=== PATIENT | female | born 1955 | race Caucasian/White ===

== ENCOUNTER 2019-01-19 20:18 | Observation (INO) ==
[2019-01-19] MEDS ORDERED: ASPIRIN 325 MG TABLET PO STA (20:37)
[2019-01-19 20:48] LABS: Basophils # 0.1 10*3/uL (0.0-0.2); Basophils % 0.6 % (0.0-0.8); Eosinophils # 0.1 10*3/uL (0.0-0.87); Eosinophils % 1.1 % (0.00-10.9); Hematocrit 41.6 VOL% (35.7-47.0); Hemoglobin 13.4 GM/DL (12.0-16.0); Immature Granulocytes % 0.4 %; Immature Granulocytes Absolute 0.04 #; Lymphocytes # 3.7 10*3/uL (1.4-4.0); Mean Corpuscular HGB Conc 32.2 GM/DL (32-36); Mean Corpuscular Volume 94.5 FL (87-102); Monocytes % 11.3 % (1.7-12.7); Neutrophils % 49.6 % (38.7-73.9); Platelet Count 383 T/CUMM (130-400); Red Cell Distribution Width 14.5 % (9.3-17.3); White Blood Count 10.1 T/CUMM (4-12)
[2019-01-19 21:11] LABS: Lymphocytes 37 % (20-55); Segmented Neutrophils 50 % (50-85); Total Cells Counted 100
[2019-01-19 21:12] LABS: Alanine Aminotransferase 25 U/L (13-56); Albumin 3.8 G/DL (3.4-5.0); Alkaline Phosphatase 116 U/L (45-117); Aspartate Amino Transferase 23 U/L (0-37); Bilirubin,Total < 0.39 MG/DL (0.2-1.0); Blood Urea Nitrogen 9 MG/DL (7-18); Glucose 98 MG/DL (74-106); Osmolality,Calculated 277.4 MOS/KG (273-304); Platelet Estimate Adequate; Total Protein 8.1 G/DL (6.4-8.3)
[2019-01-20] MEDS: ENOXAPARIN 40 MG/0.4 ML SYRINGE SUBCUT SCH ×2 (00:33→09:41)
[2019-01-20] MEDS ORDERED: ASPIRIN EC 325 MG TABLET PO SCH (09:00)
[2019-01-20] MEDS ORDERED: ISOSORBIDE MONONITRATE 60 MG TABLET PO SCH (11:30)
[2019-01-20] MEDS ORDERED: CARVEDILOL 3.125 MG TABLET PO SCH (12:00)
[2019-01-20 12:17] VITALS: BP 145/74
[2019-01-20] MEDS ORDERED: DILTIAZEM CD 120 MG CAPSULE PO SCH (21:00)
== END 2019-01-20 14:17 | disposition home or self-care (01) ==
LOC: N.TELES 20:18 → N.ED 20:18 → N.TELES 23:33
PROVIDERS: ADMIT Emergency Medicine; ATTEND Emergency Medicine

== ENCOUNTER 2019-02-10 05:30 | Inpatient (IN) ==
[2019-02-09 12:02] LABS: Basophils # 0.1 10*3/uL (0.0-0.2); Basophils % 0.6 % (0.0-0.8); Eosinophils # 0.4 10*3/uL (0.0-0.87); Eosinophils % 5.3 % (0.00-10.9); Hematocrit 35.9 VOL% (35.7-47.0); Hemoglobin 11.4 GM/DL (12.0-16.0); Immature Granulocytes % 0.4 %; Immature Granulocytes Absolute 0.03 #; Lymphocytes # 1.9 10*3/uL (1.4-4.0); Mean Corpuscular HGB Conc 31.8 GM/DL (32-36); Mean Corpuscular Volume 96.2 FL (87-102); Mean Platelet Volume 9.1 FL (9.6-12.0); Monocytes % 13.6 % (1.7-12.7); Neutrophils % 57.1 % (38.7-73.9); Platelet Count 338 T/CUMM (130-400); Red Blood Count 3.73 MC/CUMM (3.8-5.5); Red Cell Distribution Width 14.1 % (9.3-17.3); White Blood Count 8.2 T/CUMM (4-12)
[2019-02-09 12:15] LABS: Calcium 9.2 MG/DL (8.5-10.1); Osmolality,Calculated 281.1 MOS/KG (273-304)
[2019-02-09 12:17] LABS: INR 0.8; PT Patient Result 9.2 SECS
[2019-02-09 13:17] LABS: Apearance,Urine CLEAR (Clear); Bilirubin,Urine Negative (Negative); Blood, Urine Negative (Negative); Glucose,Urine (UA) Negative (Negative); Ketones,Urine Negative (Negative); Nitrite,Urine Negative (Negative); Protein,Urine Negative; RBC,Urine <1 /HPF (0-4); Squamous Epithelial Cell,Urine Occasional /HPF (0-10); Urine Color Straw (Yellow); Urine Specific Gravity 1.003 (1.001-1.035); Urine Urobilinogen < 2.0 EU/DL (0.2-1.0); WBC,Urine <1 /HPF (0-6)
[~2019-02-10 05:30] MED LIST: ALBUTEROL/IPRATROPIUM 3 ML NEB RESP TX ONE; CEFUROXIME INJ 1,500 MG in SYRINGE 1 EACH IV ONE; DIAZEPAM 5 MG TABLET PO ONE; PAPAVERINE 60 MG/2 ML VIAL ONE; SODIUM CHLORIDE 0.9% 1,000 ML IV PRN; TISSUE ADHESIVE 1 EACH APPLICATOR TOP ONE; VANCOMYCIN 1,000 MG VIAL ONE
[2019-02-10] MEDS ORDERED: CEFUROXIME 1,500 MG VIAL ONE (06:05)
[2019-02-10] MEDS ORDERED: DIAZEPAM 5 MG TABLET ONE (06:06)
[2019-02-10] MEDS ORDERED: MIDAZOLAM 10 MG/2 ML VIAL ONE ×2 (06:20)
[2019-02-10] MEDS ORDERED: SUFentanil 250 MCG/5 ML AMP ONE (06:20)
[2019-02-10] MEDS ORDERED: LACTATED RINGERS 1,000 ML IV SCH (06:30)
[2019-02-10] MEDS ORDERED: NITROPRUSSIDE 50 MG/2 ML VIAL ONE (07:31)
[2019-02-10] MEDS ORDERED: SODIUM BICARBONATE 50 MEQ/50 ML VIAL IV ONE ×2 (07:32→10:19)
[2019-02-10] MEDS ORDERED: POTASSIUM CHLORIDE RIDER 100 ML IV ONE (07:32)
[2019-02-10] MEDS ORDERED: EPINEPHrine 1 MG/10 ML SYRINGE ONE (07:32)
[2019-02-10] MEDS ORDERED: CALCIUM CHLORIDE 1,000 MG/10 ML SYRINGE IV ONE (07:32)
[2019-02-10] MEDS ORDERED: PHENYLEPHRINE DRIP 40 MG/250 ML PREMIX IV ONE (07:32)
[2019-02-10] MEDS ORDERED: ALBUMIN 5% 12.5 GM/250 ML VIAL IV ONE ×2 (07:33)
[2019-02-10 07:43] LABS: ABG HCO3 22.7 MMOL/L (20-26); ABG PCO2 43.3 MM HG (35-48); ABG PH 7.337 (7.35-7.45); ABG PO2 359.8 MM HG (80-95); Glucose Heart Surgery 80 MG/DL (74-106); Hemoglobin Heart Surgery 10.5 G/DL (12.0-16.0); Ionized Calcium Arterial 1.15 MMOL/L (1.21-1.46); PCO2 Patient Temp Arterial 43.3 MMHG; PH Patient Temp Arterial 7.337; PO2 Patient Temp Arterial 359.8 MM HG; Patient Temperature 37 CELCIUS; Potassium Heart/CVR 3.1 MMOL/L (3.5-5.1); Sodium Heart/CVR 141 MMOL/L (135-145)
[2019-02-10 08:18] LABS: Amorphous Crystals,Urine Moderate /HPF (Few); Apearance,Urine Slightly Hazy (Clear); Bilirubin,Urine Negative (Negative); Blood, Urine Negative (Negative); Glucose,Urine (UA) Negative (Negative); Ketones,Urine Negative (Negative); Nitrite,Urine Negative (Negative); Protein,Urine Negative; RBC,Urine <1 /HPF (0-4); Urine Color Yellow (Yellow); Urine Specific Gravity 1.012 (1.001-1.035); Urine Urobilinogen < 2.0 EU/DL (0.2-1.0)
[2019-02-10 08:59] LABS: Hematocrit Heart Surgery 20.4 PERCENT (37-47); Hemoglobin Heart Surgery 6.5 G/DL (12.0-16.0); PCO2 Patient Temp Venous 37.1 MM HG; PH Patient Temp Venous 7.417; Potassium Heart/CVR 3.6 MMOL/L (3.5-5.1); VBG Base Excess -0.1 MEQ/L (0-4); VBG HCO3 24.1 MEQ/L (24-28); VBG PCO2 42.9 MMHG (41-51); VBG PH 7.374; VBG PO2 41.8 MMHG (17-40)
[2019-02-10 09:29] LABS: Hematocrit Heart Surgery 20.8 PERCENT (37-47); Hemoglobin Heart Surgery 6.6 G/DL (12.0-16.0); PCO2 Patient Temp Venous 34.8 MM HG; PH Patient Temp Venous 7.444; PO2 Patient Temp Venous 35.5 MM HG; Potassium Heart/CVR 3.6 MMOL/L (3.5-5.1); VBG Base Excess 0.2 MEQ/L (0-4); VBG HCO3 24.4 MEQ/L (24-28); VBG Oxygen Saturation 80.8 %; VBG PCO2 40.2 MMHG (41-51); VBG PH 7.401; VBG PO2 43.7 MMHG (17-40)
[2019-02-10] MEDS ORDERED: MANNITOL 100 GM/500 ML BAG IV ONE (10:18)
[2019-02-10] MEDS ORDERED: DEXTROSE 5% KCL 20 MEQ 20 MEQ/1,000 ML BAG IV ONE (10:19)
[2019-02-10] MEDS ORDERED: MAGNESIUM SULFATE 5 GM/10 ML VIAL IV ONE (10:19)
[2019-02-10] MEDS ORDERED: HEPARIN 10,000 UNIT/10 ML VIAL ONE (10:19)
[2019-02-10] MEDS ORDERED: ALBUMIN 25% 25 GM/100 ML VIAL IV ONE (10:19)
[2019-02-10] MEDS ORDERED: PROTAMINE SULFATE 250 MG/25 ML VIAL IV ONE (10:19)
[2019-02-10] MEDS ORDERED: methylPREDNISolone SOD SUC 1,000 MG/8 ML VIAL ONE (10:19)
[2019-02-10] MEDS ORDERED: FUROSEMIDE 20 MG/2 ML VIAL ONE (10:19)
[2019-02-10] MEDS ORDERED: PROTAMINE SULFATE 50 MG/5 ML VIAL IV ONE (10:20)
[2019-02-10 10:28] LABS: ABG Base Excess -4.4 MMOL/L (-2.5-2.5); ABG HCO3 20.8 MMOL/L (20-26); ABG Oxygen Saturation 99.8 % (95-100); ABG PCO2 41.6 MM HG (35-48); ABG TCO2 19.8 MMOL/L (23-27); Glucose Heart Surgery 222 MG/DL (74-106); Hematocrit Heart Surgery 29.1 PERCENT (37-47); Hemoglobin Heart Surgery 9.4 G/DL (12.0-16.0); Ionized Calcium Arterial 1.31 MMOL/L (1.21-1.46); PCO2 Patient Temp Arterial 41.6 MMHG; Patient Temperature 37 CELCIUS; Potassium Heart/CVR 3.3 MMOL/L (3.5-5.1); Sodium Heart/CVR 137 MMOL/L (135-145)
[2019-02-10] MEDS ORDERED: AMIODARONE 450 MG/9 ML VIAL IV ONE (10:45)
[2019-02-10] MEDS ORDERED: AMIODARONE INJ 450 MG in DEXTROSE 5% 241 ML IV SCH (11:00)
[2019-02-10] MEDS ORDERED: MAGNESIUM SULF RIDER 4 GM in PREMIX 1 EACH IV PRN (11:01)
[2019-02-10] MEDS ORDERED: DEXTROSE 50% 25 GM/50 ML VIAL IV PRN ×2 (11:01)
[2019-02-10] MEDS ORDERED: ACETAMINOPHEN 650 MG SUPP RECTAL PRN (11:01)
[2019-02-10] MEDS ORDERED: ONDANSETRON 4 MG/2 ML VIAL IV PRN (11:01)
[2019-02-10] MEDS ORDERED: CALCIUM CHLORIDE 1,000 MG/10 ML SYRINGE IV PRN (11:01)
[2019-02-10] MEDS ORDERED: SODIUM CHLORIDE 0.9% 250 ML IV PRN (11:01)
[2019-02-10] MEDS ORDERED: INSULIN REGULAR 100 UNIT/ML IV PRN (11:01)
[2019-02-10] MEDS ORDERED: ALBUMIN 5% 12.5 GM in PREMIX 1 EACH IV PRN (11:01)
[2019-02-10] MEDS ORDERED: CHLORHEXIDINE 4% SOLN 118 ML BOTTLE TOP PRN (11:01)
[2019-02-10] MEDS ORDERED: MIDAZOLAM 2 MG/2 ML VIAL IV PRN (11:01)
[2019-02-10] MEDS ORDERED: INSULIN REGULAR DRIP 100 ML IV SCH (11:30)
[2019-02-10] MEDS: SODIUM CHLORIDE 0.45% 1,000 ML IV SCH ×3 (11:34→22:47)
[2019-02-10 11:35] LABS: ABG Base Excess -3.9 MMOL/L (-2.5-2.5); ABG HCO3 21.2 MMOL/L (20-26); ABG Oxygen Saturation 97.9 % (95-100); ABG PCO2 44.2 MM HG (35-48); ABG PH 7.311 (7.35-7.45); ABG TCO2 20.4 MMOL/L (23-27); Glucose Heart Surgery 148 MG/DL (74-106); Hematocrit Heart Surgery 32.1 PERCENT (37-47); Hemoglobin Heart Surgery 10.4 G/DL (12.0-16.0); Potassium Heart/CVR 2.8 MMOL/L (3.5-5.1)
[2019-02-10 11:37] LABS: Basophils % 0.3 % (0.0-0.8); Eosinophils # 0.3 10*3/uL (0.0-0.87); Eosinophils % 2.9 % (0.00-10.9); Hematocrit 31.4 VOL% (35.7-47.0); Hemoglobin 10.1 GM/DL (12.0-16.0); Immature Granulocytes % 0.8 %; Immature Granulocytes Absolute 0.08 #; Lymphocytes # 1.9 10*3/uL (1.4-4.0); Lymphocytes % 17.8 % (21.3-54.2); Mean Corpuscular HGB Conc 32.2 GM/DL (32-36); Mean Platelet Volume 9.4 FL (9.6-12.0); Neutrophils % 71.2 % (38.7-73.9); Platelet Count 189 T/CUMM (130-400); Red Blood Count 3.27 MC/CUMM (3.8-5.5); Red Cell Distribution Width 13.6 % (9.3-17.3); White Blood Count 10.7 T/CUMM (4-12)
[2019-02-10] MEDS: POTASSIUM CHLORIDE RIDER 20 MEQ in PREMIX 1 EACH IV PRN ×3 (11:48→17:51)
[2019-02-10 11:55] LABS: INR 0.9; PT Patient Result 10.3 SECS; Partial Thromboplastin Time 25.1 SECS (0-40)
[2019-02-10] MEDS: SODIUM CHLORIDE 0.9% 1,000 ML IV PRN ×2 (12:00→20:46)
[2019-02-10] MEDS: MAGNESIUM SULF RIDER 2 GM in PREMIX 1 EACH IV PRN (12:00)
[2019-02-10] MEDS ORDERED: MINERAL OIL/PETROLATUM OPH OINT 3.5 GM TUBE ONE (12:04)
[2019-02-10] MEDS ORDERED: HEPARIN/NACL 0.9% 2 UNITS/ML 500 ML IV ONE (12:04)
[2019-02-10] MEDS ORDERED: CALCIUM CHLORIDE 1,000 MG/10 ML VIAL IV ONE (12:04)
[2019-02-10] MEDS ORDERED: SODIUM CHLORIDE 0.9% 250 ML IV ONE (12:04)
[2019-02-10] MEDS ORDERED: SEVOFLURANE 1 UNIT/15 MINUTE INH ONE (12:04)
[2019-02-10] MEDS ORDERED: ETOMIDATE 40 MG/20 ML VIAL IV ONE (12:04)
[2019-02-10] MEDS ORDERED: LACTATED RINGERS 1,000 ML IV ONE (12:04)
[2019-02-10] MEDS ORDERED: AMIODARONE 150 MG/3 ML VIAL ONE (12:04)
[2019-02-10] MEDS ORDERED: SODIUM CHLORIDE 0.9% 1,000 ML IV ONE (12:04)
[2019-02-10] MEDS ORDERED: VECURONIUM 10 MG VIAL IV ONE (12:04)
[2019-02-10] MEDS ORDERED: AMINOCAPROIC ACID 5,000 MG/20 ML VIAL ONE (12:04)
[2019-02-10] MEDS ORDERED: SODIUM CHLORIDE 0.9% 100 ML IV ONE (12:04)
[2019-02-10 12:08] LABS: Calcium 8.6 MG/DL (8.5-10.1); Osmolality,Calculated 285.8 MOS/KG (273-304)
[2019-02-10] MEDS ORDERED: ASPIRIN 325 MG TABLET PO ONE (12:33)
[2019-02-10] MEDS ORDERED: INSULIN REGULAR DRIP 100 ML IV PRN (13:46)
[2019-02-10] MEDS ORDERED: INSULIN REGULAR 100 UNIT/ML SUBCUT SCH (16:00)
[2019-02-10] MEDS: AMIODARONE INJ 450 MG in DEXTROSE 5% 241 ML IV SCH ×2 (16:00→21:03)
[2019-02-10] MEDS: INSULIN REGULAR 100 UNIT/ML SUBCUT SCH ×2 (16:11→20:15)
[2019-02-10 16:48] LABS: ABG Base Excess -5.2 MMOL/L (-2.5-2.5); ABG HCO3 20.1 MMOL/L (20-26); ABG Oxygen Saturation 97.1 % (95-100); ABG PCO2 41.4 MM HG (35-48); ABG PH 7.309 (7.35-7.45); ABG PO2 98.4 MM HG (80-95); ABG TCO2 19.2 MMOL/L (23-27); Glucose Heart Surgery 171 MG/DL (74-106); Hematocrit Heart Surgery 30.5 PERCENT (37-47); Hemoglobin Heart Surgery 9.8 G/DL (12.0-16.0); Potassium Heart/CVR 3.6 MMOL/L (3.5-5.1)
[2019-02-10] MEDS: MORPHINE 4 MG/1 ML VIAL IV PRN ×2 (17:10→18:23)
[2019-02-10] MEDS: CEFUROXIME INJ 1,500 MG in SYRINGE 1 EACH IV SCH (18:01)
[2019-02-10] MEDS: POTASSIUM CHLORIDE RIDER 10 MEQ in PREMIX 1 EACH IV PRN (18:22)
[2019-02-10] MEDS ORDERED: METOPROLOL TARTRATE 5 MG/5 ML VIAL IV ONE (19:43)
[2019-02-10] MEDS: MORPHINE 10 MG/1 ML VIAL IV PRN (20:12)
[2019-02-10] MEDS: CHLORHEXIDINE 0.12% ORAL RINSE 60 ML BOTTLE SWISH/SPIT SCH (20:44)
[2019-02-11] MEDS: INSULIN REGULAR 100 UNIT/ML SUBCUT SCH ×7 (00:42→23:09)
[2019-02-11] MEDS: MORPHINE 10 MG/1 ML VIAL IV PRN ×5 (00:43→20:36)
[2019-02-11] MEDS: SODIUM CHLORIDE 0.45% 1,000 ML IV SCH ×2 (00:49→07:30)
[2019-02-11 04:29] LABS: Basophils % 0.3 % (0.0-0.8); Eosinophils # 0.1 10*3/uL (0.0-0.87); Eosinophils % 0.4 % (0.00-10.9); Hematocrit 30.9 VOL% (35.7-47.0); Hemoglobin 9.7 GM/DL (12.0-16.0); Immature Granulocytes % 0.7 %; Lymphocytes # 1.6 10*3/uL (1.4-4.0); Lymphocytes % 10.5 % (21.3-54.2); Mean Corpuscular HGB Conc 31.4 GM/DL (32-36); Mean Corpuscular Volume 97.5 FL (87-102); Mean Platelet Volume 9.7 FL (9.6-12.0); Monocytes % 12.4 % (1.7-12.7); Neutrophils % 75.7 % (38.7-73.9); Platelet Count 214 T/CUMM (130-400); Red Blood Count 3.17 MC/CUMM (3.8-5.5); Red Cell Distribution Width 13.7 % (9.3-17.3); White Blood Count 15.3 T/CUMM (4-12)
[2019-02-11 04:31] LABS: ABG Base Excess -5.2 MMOL/L (-2.5-2.5); ABG HCO3 20.1 MMOL/L (20-26); ABG Oxygen Saturation 92.1 % (95-100); ABG PCO2 36.7 MM HG (35-48); ABG PH 7.344 (7.35-7.45); ABG PO2 64.4 MM HG (80-95); ABG TCO2 18.3 MMOL/L (23-27); Glucose Heart Surgery 151 MG/DL (74-106); Hematocrit Heart Surgery 31.7 PERCENT (37-47); Hemoglobin Heart Surgery 10.2 G/DL (12.0-16.0); Potassium Heart/CVR 3.7 MMOL/L (3.5-5.1)
[2019-02-11] MEDS: POTASSIUM CHLORIDE RIDER 20 MEQ in PREMIX 1 EACH IV PRN ×2 (04:37→05:11)
[2019-02-11 04:44] LABS: Calcium 7.4 MG/DL (8.5-10.1); Osmolality,Calculated 280.3 MOS/KG (273-304)
[2019-02-11 05:05] LABS: Hypochromasia Slight; Ovalocytes Slight; Platelet Estimate Adequate
[2019-02-11] MEDS: METOPROLOL TARTRATE 25 MG TABLET PO SCH ×3 (05:52→20:35)
[2019-02-11] MEDS: MAGNESIUM SULF RIDER 2 GM in PREMIX 1 EACH IV PRN ×2 (05:56→07:55)
[2019-02-11] MEDS: CEFUROXIME INJ 1,500 MG in SYRINGE 1 EACH IV SCH ×2 (06:14→18:34)
[2019-02-11] MEDS: AMIODARONE INJ 450 MG in DEXTROSE 5% 241 ML IV SCH (06:27)
[2019-02-11] MEDS: MORPHINE 4 MG/1 ML VIAL IV PRN ×2 (08:25→14:19)
[2019-02-11] MEDS: ASPIRIN EC 325 MG TABLET PO SCH (08:25)
[2019-02-11] MEDS: FUROSEMIDE 40 MG TABLET PO SCH (08:25)
[2019-02-11] MEDS ORDERED: FUROSEMIDE 40 MG/4 ML VIAL IV ONE (08:48)
[2019-02-11] MEDS ORDERED: KETOROLAC 30 MG/1 ML VIAL IV ONE (08:48)
[2019-02-11] MEDS ORDERED: PANTOPRAZOLE 40 MG VIAL IV SCH (09:00)
[2019-02-11] MEDS: CHLORHEXIDINE 0.12% ORAL RINSE 60 ML BOTTLE SWISH/SPIT SCH ×2 (09:00→20:42)
[2019-02-11] MEDS: CLOPIDOGREL 75 MG TABLET PO SCH (09:00)
[2019-02-11] MEDS: AMIODARONE 200 MG TABLET PO SCH (09:00)
[2019-02-11] MEDS ORDERED: BUTALBITAL ACETAMINOPHEN PO PRN (09:34)
[2019-02-11] MEDS ORDERED: PROMETHAZINE 25 MG TABLET PO PRN (09:34)
[2019-02-11] MEDS: ISOSORBIDE MONONITRATE 30 MG TABLET PO SCH (14:22)
[2019-02-11] MEDS: BISMUTH SUBSALICYLATE 30 ML/524 MG 240 ML/BOTTLE PO SCH ×3 (14:52→20:43)
[2019-02-11] MEDS: ZALEPLON 5 MG CAPSULE PO SCH (20:34)
[2019-02-11] MEDS: DILTIAZEM CD 120 MG CAPSULE PO SCH (20:35)
[2019-02-11] MEDS: FAMOTIDINE 20 MG TABLET PO SCH (20:35)
[2019-02-11] MEDS: GABAPENTIN 300 MG CAPSULE PO SCH (20:35)
[2019-02-11] MEDS: ATORVASTATIN 40 MG TABLET PO SCH (20:36)
[2019-02-12] MEDS: INSULIN REGULAR 100 UNIT/ML SUBCUT SCH ×6 (03:44→23:11)
[2019-02-12 05:09] LABS: Basophils % 0.2 % (0.0-0.8); Eosinophils # 0.2 10*3/uL (0.0-0.87); Eosinophils % 1.3 % (0.00-10.9); Hematocrit 27.6 VOL% (35.7-47.0); Immature Granulocytes % 0.5 %; Immature Granulocytes Absolute 0.07 #; Lymphocytes % 13.8 % (21.3-54.2); Mean Corpuscular HGB Conc 32.6 GM/DL (32-36); Mean Corpuscular Volume 95.2 FL (87-102); Mean Platelet Volume 10.4 FL (9.6-12.0); Neutrophils % 68.2 % (38.7-73.9); Platelet Count 208 T/CUMM (130-400); Red Cell Distribution Width 13.4 % (9.3-17.3); White Blood Count 14.5 T/CUMM (4-12)
[2019-02-12 05:36] LABS: Calcium 7.6 MG/DL (8.5-10.1); Osmolality,Calculated 272.7 MOS/KG (273-304)
[2019-02-12 06:00] LABS: Atypical Lymphocytes Few; Band Neutrophils 1 % (0-10); Eosinophils 1 % (0-10); Hypochromasia Slight; Lymphocytes 12 % (20-55); Microcytosis Slight; Segmented Neutrophils 73 % (50-85); Total Cells Counted 100
[2019-02-12 06:01] LABS: Platelet Estimate Normal
[2019-02-12] MEDS ORDERED: AMITRIPTYLINE 100 MG TABLET PO SCH (09:00)
[2019-02-12] MEDS ORDERED: PROMETHAZINE 25 MG TABLET PO PRN (09:40)
[2019-02-12] MEDS: CLOPIDOGREL 75 MG TABLET PO SCH (10:16)
[2019-02-12] MEDS: MULTIVITAMIN (CENTRUM) TABLET PO SCH (10:16)
[2019-02-12] MEDS: FAMOTIDINE 20 MG TABLET PO SCH ×2 (10:16→20:58)
[2019-02-12] MEDS: DULoxetine 30 MG CAPSULE PO SCH (10:16)
[2019-02-12] MEDS: GABAPENTIN 300 MG CAPSULE PO SCH ×2 (10:16→20:58)
[2019-02-12] MEDS: ASPIRIN EC 325 MG TABLET PO SCH (10:17)
[2019-02-12] MEDS: METOPROLOL TARTRATE 25 MG TABLET PO SCH ×2 (10:17→20:58)
[2019-02-12] MEDS: AMIODARONE 200 MG TABLET PO SCH (10:17)
[2019-02-12] MEDS: FUROSEMIDE 40 MG TABLET PO SCH (10:17)
[2019-02-12] MEDS: CALCIUM (CARBONATE)/VITAMIN D 600 MG-400 UNIT TABLET PO SCH (10:17)
[2019-02-12] MEDS: PANTOPRAZOLE 20 MG TABLET PO SCH (10:18)
[2019-02-12] MEDS: PARoxetine 20 MG TABLET PO SCH (10:18)
[2019-02-12] MEDS: ISOSORBIDE MONONITRATE 30 MG TABLET PO SCH (10:18)
[2019-02-12] MEDS: FUROSEMIDE 20 MG TABLET PO SCH (10:18)
[2019-02-12] MEDS: CHLORHEXIDINE 0.12% ORAL RINSE 60 ML BOTTLE SWISH/SPIT SCH ×2 (10:19→20:57)
[2019-02-12] MEDS: BISMUTH SUBSALICYLATE 30 ML/524 MG 240 ML/BOTTLE PO SCH ×4 (10:19→20:57)
[2019-02-12] MEDS: POTASSIUM CHLORIDE RIDER 10 MEQ in PREMIX 1 EACH IV PRN ×3 (10:25→13:57)
[2019-02-12] MEDS: DIPHENOXYLATE/ATROPINE 2.5-0.025 MG TABLET PO PRN (17:16)
[2019-02-12] MEDS: DILTIAZEM CD 120 MG CAPSULE PO SCH (20:58)
[2019-02-12] MEDS: ZALEPLON 5 MG CAPSULE PO SCH (20:58)
[2019-02-12] MEDS: ATORVASTATIN 40 MG TABLET PO SCH (20:59)
[2019-02-12] MEDS: AMITRIPTYLINE 100 MG TABLET PO SCH (20:59)
[2019-02-12] MEDS: MORPHINE 10 MG/1 ML VIAL IV PRN (23:11)
[2019-02-13] MEDS: INSULIN REGULAR 100 UNIT/ML SUBCUT SCH ×5 (03:13→20:48)
[2019-02-13 04:40] LABS: Basophils # 0.1 10*3/uL (0.0-0.2); Basophils % 0.5 % (0.0-0.8); Eosinophils # 0.2 10*3/uL (0.0-0.87); Eosinophils % 1.7 % (0.00-10.9); Hemoglobin 9.1 GM/DL (12.0-16.0); Immature Granulocytes % 0.8 %; Immature Granulocytes Absolute 0.11 #; Lymphocytes # 2.7 10*3/uL (1.4-4.0); Lymphocytes % 19.4 % (21.3-54.2); Mean Corpuscular HGB Conc 32.5 GM/DL (32-36); Mean Corpuscular Volume 94.3 FL (87-102); Mean Platelet Volume 10.1 FL (9.6-12.0); Monocytes % 11.1 % (1.7-12.7); Neutrophils % 66.5 % (38.7-73.9); Platelet Count 268 T/CUMM (130-400); Red Blood Count 2.97 MC/CUMM (3.8-5.5); Red Cell Distribution Width 13.2 % (9.3-17.3); White Blood Count 13.9 T/CUMM (4-12)
[2019-02-13 05:02] LABS: Calcium 7.9 MG/DL (8.5-10.1); Osmolality,Calculated 279.3 MOS/KG (273-304)
[2019-02-13] MEDS: MAGNESIUM SULF RIDER 2 GM in PREMIX 1 EACH IV PRN (09:50)
[2019-02-13] MEDS: POTASSIUM CHLORIDE RIDER 10 MEQ in PREMIX 1 EACH IV PRN ×4 (09:52→13:10)
[2019-02-13] MEDS: METOPROLOL TARTRATE 25 MG TABLET PO SCH ×2 (09:53→20:56)
[2019-02-13] MEDS: MULTIVITAMIN (CENTRUM) TABLET PO SCH (09:59)
[2019-02-13] MEDS: DULoxetine 30 MG CAPSULE PO SCH (09:59)
[2019-02-13] MEDS: GABAPENTIN 300 MG CAPSULE PO SCH ×2 (10:00→20:51)
[2019-02-13] MEDS: ASPIRIN EC 325 MG TABLET PO SCH (10:00)
[2019-02-13] MEDS: PARoxetine 20 MG TABLET PO SCH (10:01)
[2019-02-13] MEDS: FUROSEMIDE 40 MG TABLET PO SCH (10:02)
[2019-02-13] MEDS: FAMOTIDINE 20 MG TABLET PO SCH ×2 (10:02→20:51)
[2019-02-13] MEDS: CLOPIDOGREL 75 MG TABLET PO SCH (10:02)
[2019-02-13] MEDS: PANTOPRAZOLE 20 MG TABLET PO SCH (10:02)
[2019-02-13] MEDS: AMIODARONE 200 MG TABLET PO SCH (10:02)
[2019-02-13] MEDS: CALCIUM (CARBONATE)/VITAMIN D 600 MG-400 UNIT TABLET PO SCH (10:04)
[2019-02-13] MEDS: FUROSEMIDE 20 MG TABLET PO SCH (10:07)
[2019-02-13] MEDS: ISOSORBIDE MONONITRATE 30 MG TABLET PO SCH (10:13)
[2019-02-13] MEDS: BISMUTH SUBSALICYLATE 30 ML/524 MG 240 ML/BOTTLE PO SCH ×4 (10:16→20:53)
[2019-02-13] MEDS: CHLORHEXIDINE 0.12% ORAL RINSE 60 ML BOTTLE SWISH/SPIT SCH ×2 (10:17→20:53)
[2019-02-13] MEDS: DIPHENOXYLATE/ATROPINE 2.5-0.025 MG TABLET PO PRN (10:31)
[2019-02-13] MEDS: ATORVASTATIN 40 MG TABLET PO SCH (20:47)
[2019-02-13] MEDS: ZALEPLON 5 MG CAPSULE PO SCH (20:51)
[2019-02-13] MEDS: DIPHENOXYLATE/ATROPINE 2.5-0.025 MG TABLET PO SCH (20:51)
[2019-02-13] MEDS: DILTIAZEM CD 120 MG CAPSULE PO SCH (20:51)
[2019-02-13] MEDS: AMITRIPTYLINE 100 MG TABLET PO SCH (20:51)
[2019-02-13] MEDS: MORPHINE 10 MG/1 ML VIAL IV PRN (23:55)
[2019-02-14] MEDS: MORPHINE 10 MG/1 ML VIAL IV PRN (05:04)
[2019-02-14 05:11] LABS: Basophils # 0.1 10*3/uL (0.0-0.2); Basophils % 0.5 % (0.0-0.8); Eosinophils # 0.5 10*3/uL (0.0-0.87); Eosinophils % 4.8 % (0.00-10.9); Hematocrit 25.5 VOL% (35.7-47.0); Hemoglobin 8.1 GM/DL (12.0-16.0); Immature Granulocytes % 0.7 %; Immature Granulocytes Absolute 0.08 #; Lymphocytes # 2.6 10*3/uL (1.4-4.0); Lymphocytes % 23.4 % (21.3-54.2); Mean Corpuscular HGB Conc 31.8 GM/DL (32-36); Mean Corpuscular Volume 94.4 FL (87-102); Mean Platelet Volume 9.8 FL (9.6-12.0); Monocytes % 13.2 % (1.7-12.7); Neutrophils % 57.4 % (38.7-73.9); Platelet Count 300 T/CUMM (130-400); Red Cell Distribution Width 13.2 % (9.3-17.3); White Blood Count 11.1 T/CUMM (4-12)
[2019-02-14] MEDS: POTASSIUM CHLORIDE RIDER 10 MEQ in PREMIX 1 EACH IV PRN ×6 (06:06→20:13)
[2019-02-14] MEDS: CALCIUM (CARBONATE)/VITAMIN D 600 MG-400 UNIT TABLET PO SCH (08:45)
[2019-02-14] MEDS: FUROSEMIDE 40 MG TABLET PO SCH (08:46)
[2019-02-14] MEDS: ASPIRIN EC 325 MG TABLET PO SCH (08:46)
[2019-02-14] MEDS: PARoxetine 20 MG TABLET PO SCH (08:46)
[2019-02-14] MEDS: DULoxetine 30 MG CAPSULE PO SCH (08:46)
[2019-02-14] MEDS: FAMOTIDINE 20 MG TABLET PO SCH ×2 (08:47→20:14)
[2019-02-14] MEDS: DIPHENOXYLATE/ATROPINE 2.5-0.025 MG TABLET PO SCH ×2 (08:47→20:21)
[2019-02-14] MEDS: AMIODARONE 200 MG TABLET PO SCH (08:47)
[2019-02-14] MEDS: GABAPENTIN 300 MG CAPSULE PO SCH ×2 (08:52→20:13)
[2019-02-14] MEDS: ISOSORBIDE MONONITRATE 30 MG TABLET PO SCH (08:53)
[2019-02-14] MEDS: MULTIVITAMIN (CENTRUM) TABLET PO SCH (08:53)
[2019-02-14] MEDS: CLOPIDOGREL 75 MG TABLET PO SCH (08:53)
[2019-02-14] MEDS: PANTOPRAZOLE 20 MG TABLET PO SCH (08:53)
[2019-02-14] MEDS: INSULIN REGULAR 100 UNIT/ML SUBCUT SCH ×4 (10:37→22:50)
[2019-02-14] MEDS: FUROSEMIDE 20 MG TABLET PO SCH (10:37)
[2019-02-14] MEDS: METOPROLOL TARTRATE 25 MG TABLET PO SCH ×2 (10:38→20:15)
[2019-02-14] MEDS: CHLORHEXIDINE 0.12% ORAL RINSE 60 ML BOTTLE SWISH/SPIT SCH ×2 (10:38→20:30)
[2019-02-14] MEDS: BISMUTH SUBSALICYLATE 30 ML/524 MG 240 ML/BOTTLE PO SCH ×4 (10:38→20:29)
[2019-02-14] MEDS: DILTIAZEM CD 120 MG CAPSULE PO SCH (20:14)
[2019-02-14] MEDS: ZALEPLON 5 MG CAPSULE PO SCH (20:15)
[2019-02-14] MEDS: AMITRIPTYLINE 100 MG TABLET PO SCH (20:21)
[2019-02-14] MEDS: ATORVASTATIN 40 MG TABLET PO SCH (20:22)
[2019-02-15] MEDS: POTASSIUM CHLORIDE RIDER 10 MEQ in PREMIX 1 EACH IV PRN ×5 (04:22→13:35)
[2019-02-15 06:54] LABS: Calcium 8.2 MG/DL (8.5-10.1); Osmolality,Calculated 285.7 MOS/KG (273-304)
[2019-02-15] MEDS: DULoxetine 30 MG CAPSULE PO SCH (08:32)
[2019-02-15] MEDS: PANTOPRAZOLE 20 MG TABLET PO SCH (08:32)
[2019-02-15] MEDS: CALCIUM (CARBONATE)/VITAMIN D 600 MG-400 UNIT TABLET PO SCH (08:32)
[2019-02-15] MEDS: FAMOTIDINE 20 MG TABLET PO SCH (08:33)
[2019-02-15] MEDS: DIPHENOXYLATE/ATROPINE 2.5-0.025 MG TABLET PO SCH (08:33)
[2019-02-15] MEDS: MULTIVITAMIN (CENTRUM) TABLET PO SCH (08:33)
[2019-02-15] MEDS: ISOSORBIDE MONONITRATE 30 MG TABLET PO SCH (08:33)
[2019-02-15] MEDS: ASPIRIN EC 325 MG TABLET PO SCH (08:33)
[2019-02-15] MEDS: FUROSEMIDE 40 MG TABLET PO SCH (08:33)
[2019-02-15] MEDS: PARoxetine 20 MG TABLET PO SCH (08:33)
[2019-02-15] MEDS: GABAPENTIN 300 MG CAPSULE PO SCH (08:33)
[2019-02-15] MEDS: AMIODARONE 200 MG TABLET PO SCH (08:34)
[2019-02-15] MEDS: METOPROLOL TARTRATE 25 MG TABLET PO SCH (08:34)
[2019-02-15] MEDS: CLOPIDOGREL 75 MG TABLET PO SCH (08:34)
[2019-02-15] MEDS: BISMUTH SUBSALICYLATE 30 ML/524 MG 240 ML/BOTTLE PO SCH (09:58)
[2019-02-15] MEDS: INSULIN REGULAR 100 UNIT/ML SUBCUT SCH ×2 (09:58→12:23)
[2019-02-15] MEDS: CHLORHEXIDINE 0.12% ORAL RINSE 60 ML BOTTLE SWISH/SPIT SCH (09:58)
[2019-02-15] MEDS: FUROSEMIDE 20 MG TABLET PO SCH (09:58)
[2019-02-15 12:18] VITALS: BP 132/57
== END 2019-02-15 16:00 | disposition home health service (06) | DRG 236 ==
LOC: N.SDSINP 05:30 → N.OR 05:30 → N.CVR 07:20 → EDSTATUS 07:30 → N.CVR 11:01 → N.ICU 02-11 11:04 → N.TELES 02-11 17:12
PROVIDERS: ADMIT Thoracic Surgery (Cardiothoracic Vascular Surgery); ATTEND Thoracic Surgery (Cardiothoracic Vascular Surgery)

== ENCOUNTER 2019-04-27 17:21 | Inpatient (IN) ==
[2019-04-27] MEDS ORDERED: ALPRAZolam 0.25 MG TABLET PO PRN (19:54)
[2019-04-27] MEDS ORDERED: ENOXAPARIN 60 MG/0.6 ML SYRINGE SUBCUT ONE (19:54)
[2019-04-27] MEDS ORDERED: INFLUENZA VIRUS VACCINE 0.5 ML SYRINGE IM ONE (20:03)
[2019-04-27 20:08] LABS: Basophils % 0.1 % (0.0-0.8); Hematocrit 29.7 VOL% (35.7-47.0); Hemoglobin 8.8 GM/DL (12.0-16.0); Immature Granulocytes Absolute 0.15 #; Lymphocytes # 1.4 10*3/uL (1.4-4.0); Lymphocytes % 8.9 % (21.3-54.2); Mean Corpuscular HGB Conc 29.6 GM/DL (32-36); Mean Corpuscular Volume 87.9 FL (87-102); Mean Platelet Volume 9.4 FL (9.6-12.0); Monocytes % 5.5 % (1.7-12.7); Neutrophils % 84.5 % (38.7-73.9); Platelet Count 329 T/CUMM (130-400); Red Blood Count 3.38 MC/CUMM (3.8-5.5); Red Cell Distribution Width 16.4 % (9.3-17.3); White Blood Count 15.5 T/CUMM (4-12)
[2019-04-27 20:34] LABS: Alanine Aminotransferase 17 U/L (13-56); Albumin 3.4 G/DL (3.4-5.0); Alkaline Phosphatase 106 U/L (45-117); Aspartate Amino Transferase 18 U/L (0-37); Bilirubin,Total < 0.39 MG/DL (0.2-1.0); Blood Urea Nitrogen 19 MG/DL (7-18); Calcium 8.3 MG/DL (8.5-10.1); Estimated Glom Filtration Rate 52 ML/MIN; Glucose 186 MG/DL (74-106); Osmolality,Calculated 285.4 MOS/KG (273-304); Total Protein 7.5 G/DL (6.4-8.3); Troponin I 0.386 NG/ML (0.00-0.045)
[2019-04-27] MEDS: AMITRIPTYLINE 100 MG TABLET PO SCH (21:32)
[2019-04-27] MEDS: METHOCARBAMOL 750 MG TABLET PO PRN (21:32)
[2019-04-27] MEDS: DILTIAZEM CD 180 MG CAPSULE PO SCH (21:32)
[2019-04-27] MEDS: ZALEPLON 5 MG CAPSULE PO SCH (21:32)
[2019-04-27] MEDS: GABAPENTIN 300 MG CAPSULE PO SCH (21:32)
[2019-04-27] MEDS: POTASSIUM CHLORIDE 20 MEQ TABLET PO SCH (21:32)
[2019-04-27] MEDS: NITROGLYCERIN SL 0.4 MG TABLET SL PRN ×2 (22:05→22:21)
[2019-04-27] MEDS ORDERED: POTASSIUM CHLORIDE RIDER 10 MEQ in PREMIX 1 EACH IV PRN (22:22)
[2019-04-27] MEDS ORDERED: MAGNESIUM SULF RIDER 2 GM in PREMIX 1 EACH IV PRN (22:22)
[2019-04-27] MEDS ORDERED: MORPHINE 4 MG/1 ML VIAL IV PRN (22:38)
[2019-04-27 23:10] LABS: ABG Oxygen Saturation 74.3 % (95-100); ABG PCO2 32.6 MM HG (35-48); ABG PH 7.406 (7.35-7.45); Allen Test Positive; Pt O2 Delivery Device Ventilator
[2019-04-27 23:17] LABS: ABG PO2 39.8 MM HG (80-95)
[2019-04-27 23:42] LABS: ABG Base Excess -3.5 MMOL/L (-2.5-2.5); ABG HCO3 20.5 MMOL/L (20-26); ABG Oxygen Saturation 27.9 % (95-100); ABG PCO2 37.3 MM HG (35-48); ABG PH 7.367 (7.35-7.45); ABG TCO2 19.9 MMOL/L (23-27); Allen Test Positive
[2019-04-27 23:44] LABS: ABG PO2 20.6 MM HG (80-95)
[2019-04-28] LABS: ABG Base Excess -5.5 MMOL/L (-2.5-2.5); ABG HCO3 19.7 MMOL/L (20-26); ABG Oxygen Saturation 85.3 % (95-100); ABG PCO2 28.8 MM HG (35-48); ABG PH 7.409 (7.35-7.45); ABG PO2 49.9 MM HG (80-95); ABG TCO2 16.7 MMOL/L (23-27); Allen Test Positive
[2019-04-28 00:01] LABS: CKMB % 4.4 %
[2019-04-28 00:03] LABS: Troponin I 0.506 NG/ML (0.00-0.045)
[2019-04-28] MEDS: NITROGLYCERIN 2% OINT 1 INCH/GM PACK TOP SCH ×4 (00:42→17:47)
[2019-04-28] MEDS: METOPROLOL TARTRATE 25 MG TABLET PO SCH ×3 (00:42→22:09)
[2019-04-28] MEDS: ALBUTEROL/IPRATROPIUM 3 ML NEB RESP TX SCH ×7 (02:16→20:24)
[2019-04-28 03:04] LABS: Basophils % 0.1 % (0.0-0.8); Hematocrit 30.3 VOL% (35.7-47.0); Immature Granulocytes % 0.7 %; Immature Granulocytes Absolute 0.12 #; Lymphocytes # 2.1 10*3/uL (1.4-4.0); Lymphocytes % 11.7 % (21.3-54.2); Mean Corpuscular HGB Conc 29.7 GM/DL (32-36); Mean Corpuscular Volume 87.3 FL (87-102); Mean Platelet Volume 10.2 FL (9.6-12.0); Monocytes % 9.3 % (1.7-12.7); Neutrophils % 78.2 % (38.7-73.9); Platelet Count 354 T/CUMM (130-400); Red Blood Count 3.47 MC/CUMM (3.8-5.5); Red Cell Distribution Width 16.7 % (9.3-17.3); White Blood Count 18.2 T/CUMM (4-12)
[2019-04-28 03:17] LABS: Calcium 8.8 MG/DL (8.5-10.1); Osmolality,Calculated 283.3 MOS/KG (273-304)
[2019-04-28 03:22] LABS: CKMB % 7.3 %
[2019-04-28 03:32] LABS: Troponin I 1.07 NG/ML (0.00-0.045)
[2019-04-28] MEDS ORDERED: FUROSEMIDE 40 MG/4 ML VIAL IV ONE (05:06)
[2019-04-28 05:58] LABS: ABG Base Excess -6.3 MMOL/L (-2.5-2.5); ABG HCO3 19.1 MMOL/L (20-26); ABG Oxygen Saturation 86.3 % (95-100); ABG PCO2 27.4 MM HG (35-48); ABG PH 7.408 (7.35-7.45); ABG PO2 52.6 MM HG (80-95); ABG TCO2 15.9 MMOL/L (23-27)
[2019-04-28 06:44] LABS: Apearance,Urine CLEAR (Clear); Bilirubin,Urine Negative (Negative); Blood, Urine Negative (Negative); Glucose,Urine (UA) Negative (Negative); Ketones,Urine Negative (Negative); Nitrite,Urine Negative (Negative); Protein,Urine Negative; RBC,Urine 1 /HPF (0-4); Urine Color Straw (Yellow); Urine Specific Gravity 1.009 (1.001-1.035); Urine Urobilinogen < 2.0 EU/DL (0.2-1.0); WBC,Urine <1 /HPF (0-6)
[2019-04-28] MEDS ORDERED: SODIUM CHLORIDE 0.9% 1,000 ML IV SCH (08:00)
[2019-04-28] MEDS ORDERED: NON-FORMULARY MEDICATION (Topiramate [Topamax] 100 MG) PO SCH (09:00)
[2019-04-28] MEDS ORDERED: FUROSEMIDE 20 MG TABLET PO SCH (09:00)
[2019-04-28] MEDS ORDERED: AMIODARONE 200 MG TABLET PO SCH (09:00)
[2019-04-28] MEDS ORDERED: BUTALBITAL/ACETAMIN/CAFFEINE 50-325-40 MG TABLET PO SCH (09:00)
[2019-04-28] MEDS: CLOPIDOGREL 75 MG TABLET PO SCH (09:09)
[2019-04-28] MEDS: PIPERACILLIN/TAZOBACTAM 3,375 MG in SODIUM CHLORIDE 0.9% 100 ML IV SCH ×2 (09:09→16:32)
[2019-04-28] MEDS: ASPIRIN EC 81 MG TABLET PO SCH (09:09)
[2019-04-28] MEDS: DULoxetine 30 MG CAPSULE PO SCH (09:15)
[2019-04-28] MEDS: MULTIVITAMIN (CENTRUM) TABLET PO SCH (09:15)
[2019-04-28] MEDS: FLUTICASONE 50 MCG NASAL SPRAY 16 GM BOTTLE BOTH NARES SCH (09:15)
[2019-04-28] MEDS: PARoxetine 20 MG TABLET PO SCH (09:16)
[2019-04-28] MEDS: PANTOPRAZOLE 40 MG TABLET PO SCH (09:16)
[2019-04-28] MEDS: POTASSIUM CHLORIDE 20 MEQ TABLET PO SCH (09:16)
[2019-04-28] MEDS: TOPIRAMATE 100 MG TABLET PO SCH (09:16)
[2019-04-28] MEDS: GABAPENTIN 300 MG CAPSULE PO SCH ×3 (09:16→22:09)
[2019-04-28] MEDS ORDERED: DIAZEPAM 5 MG TABLET PO ONE (10:50)
[2019-04-28] MEDS ORDERED: diphenhydrAMINE 50 MG/1 ML VIAL IV ONE (10:51)
[2019-04-28] MEDS: ENOXAPARIN 60 MG/0.6 ML SYRINGE SUBCUT SCH (13:50)
[2019-04-28] MEDS: FAMOTIDINE 20 MG/2 ML VIAL IV SCH (13:50)
[2019-04-28] MEDS: NICOTINE 21 MG/24 HR PATCH TRANSDERM SCH (13:50)
[2019-04-28 14:24] LABS: CKMB % 10.7 %
[2019-04-28 14:27] LABS: Troponin I 3.24 NG/ML (0.00-0.045)
[2019-04-28] MEDS: FUROSEMIDE 40 MG/4 ML VIAL IV SCH (16:28)
[2019-04-28 19:49] LABS: CKMB % 10.7 %
[2019-04-28 19:57] LABS: Troponin I 3.97 NG/ML (0.00-0.045)
[2019-04-28] MEDS ORDERED: NON-FORMULARY MEDICATION (Zolpidem [Ambien] 10 MG) PO SCH (21:00)
[2019-04-28] MEDS ORDERED: PARoxetine 20 MG TABLET PO ONE (22:00)
[2019-04-28] MEDS: AMITRIPTYLINE 100 MG TABLET PO SCH (22:08)
[2019-04-28] MEDS: DILTIAZEM CD 180 MG CAPSULE PO SCH (22:08)
[2019-04-28] MEDS: ZALEPLON 5 MG CAPSULE PO SCH (22:09)
[2019-04-28] MEDS: ATORVASTATIN 40 MG TABLET PO SCH (22:09)
[2019-04-28] MEDS: MONTELUKAST 10 MG TABLET PO SCH (22:09)
[2019-04-28] MEDS: METHOCARBAMOL 750 MG TABLET PO PRN (22:10)
[2019-04-29] MEDS: FAMOTIDINE 20 MG/2 ML VIAL IV SCH ×3 (00:26→23:54)
[2019-04-29] MEDS: diphenhydrAMINE CAP 25 MG CAPSULE PO SCH ×4 (00:30→23:55)
[2019-04-29] MEDS: NITROGLYCERIN 2% OINT 1 INCH/GM PACK TOP SCH ×5 (00:30→23:55)
[2019-04-29] MEDS: ALBUTEROL/IPRATROPIUM 3 ML NEB RESP TX SCH ×7 (01:17→23:05)
[2019-04-29 01:48] LABS: Calcium 8.4 MG/DL (8.5-10.1)
[2019-04-29 01:52] LABS: CKMB % 8.9 %
[2019-04-29] MEDS: PIPERACILLIN/TAZOBACTAM 3,375 MG in SODIUM CHLORIDE 0.9% 100 ML IV SCH ×3 (01:55→19:04)
[2019-04-29 01:56] LABS: Troponin I 5.69 NG/ML (0.00-0.045)
[2019-04-29 02:19] LABS: Basophils % 0.1 % (0.0-0.8); Hematocrit 31.3 VOL% (35.7-47.0); Hemoglobin 9.5 GM/DL (12.0-16.0); Immature Granulocytes % 0.5 %; Immature Granulocytes Absolute 0.07 #; Lymphocytes # 2.9 10*3/uL (1.4-4.0); Lymphocytes % 18.4 % (21.3-54.2); Mean Corpuscular HGB Conc 30.4 GM/DL (32-36); Mean Corpuscular Volume 86.7 FL (87-102); Monocytes % 11.8 % (1.7-12.7); NRBC # 0.03 10*3/uL; Neutrophils % 69.2 % (38.7-73.9); Platelet Count 364 T/CUMM (130-400); Red Blood Count 3.61 MC/CUMM (3.8-5.5); Red Cell Distribution Width 16.8 % (9.3-17.3); White Blood Count 15.5 T/CUMM (4-12)
[2019-04-29] MEDS: METOPROLOL TARTRATE 25 MG TABLET PO SCH ×2 (09:48→21:41)
[2019-04-29] MEDS: ASPIRIN EC 81 MG TABLET PO SCH (09:48)
[2019-04-29] MEDS: FUROSEMIDE 40 MG/4 ML VIAL IV SCH ×2 (09:48→19:02)
[2019-04-29] MEDS: FLUTICASONE 50 MCG NASAL SPRAY 16 GM BOTTLE BOTH NARES SCH (09:48)
[2019-04-29] MEDS: DULoxetine 30 MG CAPSULE PO SCH (09:48)
[2019-04-29] MEDS: MULTIVITAMIN (CENTRUM) TABLET PO SCH (09:48)
[2019-04-29] MEDS: PARoxetine 20 MG TABLET PO SCH (09:49)
[2019-04-29] MEDS: ENOXAPARIN 60 MG/0.6 ML SYRINGE SUBCUT SCH (09:49)
[2019-04-29] MEDS: TOPIRAMATE 100 MG TABLET PO SCH (09:49)
[2019-04-29] MEDS: CLOPIDOGREL 75 MG TABLET PO SCH (09:49)
[2019-04-29] MEDS: PANTOPRAZOLE 40 MG TABLET PO SCH (09:49)
[2019-04-29] MEDS: NICOTINE 21 MG/24 HR PATCH TRANSDERM SCH (09:49)
[2019-04-29] MEDS: GABAPENTIN 300 MG CAPSULE PO SCH ×3 (09:49→21:41)
[2019-04-29] MEDS ORDERED: diphenhydrAMINE CAP 25 MG CAPSULE PO ONE (10:41)
[2019-04-29] MEDS ORDERED: DIAZEPAM 5 MG TABLET PO ONE (10:41)
[2019-04-29] MEDS ORDERED: MAGNESIUM SULF RIDER 2 GM in PREMIX 1 EACH IV PRN (10:41)
[2019-04-29] MEDS ORDERED: HEPARIN/NACL 0.9% 2 UNITS/ML 1,000 ML IV ONE (15:13)
[2019-04-29] MEDS ORDERED: LIDOCAINE 1% 20 ML VIAL ONE (15:13)
[2019-04-29] MEDS ORDERED: fentaNYL 100 MCG/2 ML VIAL ONE (15:41)
[2019-04-29] MEDS ORDERED: MIDAZOLAM 2 MG/2 ML VIAL ONE ×2 (15:41→15:49)
[2019-04-29] MEDS ORDERED: diphenhydrAMINE 50 MG/1 ML VIAL ONE (15:47)
[2019-04-29] MEDS ORDERED: BIVALIRUDIN 250 MG VIAL IV ONE (16:06)
[2019-04-29] MEDS ORDERED: EPTIFIBATIDE 75 MG/100 ML BOTTLE IV ONE (16:08)
[2019-04-29] MEDS ORDERED: EPTIFIBATIDE 20,000 MCG/10 ML VIAL ONE (16:20)
[2019-04-29] MEDS ORDERED: HEPARIN/NACL 0.9% 2 UNITS/ML 500 ML IV ONE (16:40)
[2019-04-29] MEDS ORDERED: ADENOSINE 90 MG/30 ML VIAL IV ONE (16:42)
[2019-04-29] MEDS ORDERED: CLOPIDOGREL 300 MG TABLET ONE (17:29)
[2019-04-29] MEDS ORDERED: ONDANSETRON 4 MG/2 ML VIAL IV PRN (17:39)
[2019-04-29] MEDS ORDERED: ACETAMINOPHEN 325 MG TABLET PO PRN (17:39)
[2019-04-29] MEDS: ATORVASTATIN 40 MG TABLET PO SCH (21:41)
[2019-04-29] MEDS: DILTIAZEM CD 180 MG CAPSULE PO SCH (21:41)
[2019-04-29] MEDS: ZALEPLON 5 MG CAPSULE PO SCH (21:41)
[2019-04-29] MEDS: MONTELUKAST 10 MG TABLET PO SCH (21:41)
[2019-04-29] MEDS: AMITRIPTYLINE 100 MG TABLET PO SCH (21:41)
[2019-04-29] MEDS: METHOCARBAMOL 750 MG TABLET PO PRN (21:42)
[2019-04-30] MEDS: PIPERACILLIN/TAZOBACTAM 3,375 MG in SODIUM CHLORIDE 0.9% 100 ML IV SCH ×3 (01:45→18:51)
[2019-04-30] MEDS: ALBUTEROL/IPRATROPIUM 3 ML NEB RESP TX SCH ×4 (03:25→19:41)
[2019-04-30 05:33] LABS: Basophils % 0.2 % (0.0-0.8); Hematocrit 28.6 VOL% (35.7-47.0); Hemoglobin 8.6 GM/DL (12.0-16.0); Immature Granulocytes % 0.5 %; Immature Granulocytes Absolute 0.06 #; Lymphocytes # 2.6 10*3/uL (1.4-4.0); Lymphocytes % 22.4 % (21.3-54.2); Mean Corpuscular HGB Conc 30.1 GM/DL (32-36); Mean Corpuscular Volume 86.4 FL (87-102); Mean Platelet Volume 10.1 FL (9.6-12.0); Monocytes % 14.3 % (1.7-12.7); NRBC # 0.03 10*3/uL; Neutrophils % 62.6 % (38.7-73.9); Platelet Count 325 T/CUMM (130-400); Red Blood Count 3.31 MC/CUMM (3.8-5.5); White Blood Count 11.4 T/CUMM (4-12)
[2019-04-30] MEDS: NITROGLYCERIN 2% OINT 1 INCH/GM PACK TOP SCH ×3 (05:47→18:51)
[2019-04-30 06:05] LABS: Calcium 8.3 MG/DL (8.5-10.1); Osmolality,Calculated 290.8 MOS/KG (273-304)
[2019-04-30] MEDS: diphenhydrAMINE CAP 25 MG CAPSULE PO SCH ×3 (06:51→18:51)
[2019-04-30] MEDS: PARoxetine 20 MG TABLET PO SCH (09:30)
[2019-04-30] MEDS: METOPROLOL TARTRATE 25 MG TABLET PO SCH ×2 (09:30→20:11)
[2019-04-30] MEDS: ASPIRIN EC 81 MG TABLET PO SCH (09:30)
[2019-04-30] MEDS: DULoxetine 30 MG CAPSULE PO SCH (09:31)
[2019-04-30] MEDS: MULTIVITAMIN (CENTRUM) TABLET PO SCH (09:31)
[2019-04-30] MEDS: GABAPENTIN 300 MG CAPSULE PO SCH ×3 (09:31→20:11)
[2019-04-30] MEDS: PANTOPRAZOLE 40 MG TABLET PO SCH (09:31)
[2019-04-30] MEDS: TOPIRAMATE 100 MG TABLET PO SCH (09:32)
[2019-04-30] MEDS: CLOPIDOGREL 75 MG TABLET PO SCH (09:32)
[2019-04-30] MEDS: FLUTICASONE 50 MCG NASAL SPRAY 16 GM BOTTLE BOTH NARES SCH (09:33)
[2019-04-30] MEDS: NICOTINE 14 MG/24 HR PATCH TRANSDERM SCH (09:33)
[2019-04-30] MEDS: DILTIAZEM CD 120 MG CAPSULE PO SCH (09:35)
[2019-04-30] MEDS: FAMOTIDINE 20 MG/2 ML VIAL IV SCH (11:17)
[2019-04-30] MEDS: FUROSEMIDE 40 MG/4 ML VIAL IV SCH (16:08)
[2019-04-30] MEDS: ENOXAPARIN 40 MG/0.4 ML SYRINGE SUBCUT SCH (20:10)
[2019-04-30] MEDS: ZALEPLON 5 MG CAPSULE PO SCH (20:11)
[2019-04-30] MEDS: ATORVASTATIN 40 MG TABLET PO SCH (20:11)
[2019-04-30] MEDS: AMITRIPTYLINE 100 MG TABLET PO SCH (20:11)
[2019-04-30] MEDS: MONTELUKAST 10 MG TABLET PO SCH (20:11)
[2019-05-01] MEDS: ALBUTEROL/IPRATROPIUM 3 ML NEB RESP TX SCH ×4 (00:26→20:45)
[2019-05-01] MEDS: NITROGLYCERIN 2% OINT 1 INCH/GM PACK TOP SCH ×4 (00:45→17:10)
[2019-05-01] MEDS: diphenhydrAMINE CAP 25 MG CAPSULE PO SCH ×3 (00:45→11:19)
[2019-05-01] MEDS: PIPERACILLIN/TAZOBACTAM 3,375 MG in SODIUM CHLORIDE 0.9% 100 ML IV SCH ×3 (00:45→20:54)
[2019-05-01] MEDS: FAMOTIDINE 20 MG/2 ML VIAL IV SCH ×2 (00:45→11:19)
[2019-05-01 04:32] LABS: Basophils % 0.3 % (0.0-0.8); Eosinophils % 0.4 % (0.00-10.9); Hematocrit 30.9 VOL% (35.7-47.0); Hemoglobin 9.1 GM/DL (12.0-16.0); Immature Granulocytes % 0.5 %; Immature Granulocytes Absolute 0.05 #; Lymphocytes # 2.9 10*3/uL (1.4-4.0); Lymphocytes % 27.8 % (21.3-54.2); Mean Corpuscular HGB Conc 29.4 GM/DL (32-36); Mean Corpuscular Volume 87.8 FL (87-102); Mean Platelet Volume 10.2 FL (9.6-12.0); Monocytes % 12.9 % (1.7-12.7); NRBC # 0.04 10*3/uL; Neutrophils % 58.1 % (38.7-73.9); Platelet Count 351 T/CUMM (130-400); Red Blood Count 3.52 MC/CUMM (3.8-5.5); Red Cell Distribution Width 17.2 % (9.3-17.3); White Blood Count 10.3 T/CUMM (4-12)
[2019-05-01 05:09] LABS: Calcium 8.3 MG/DL (8.5-10.1); Osmolality,Calculated 293.6 MOS/KG (273-304)
[2019-05-01] MEDS ORDERED: ENOXAPARIN 40 MG/0.4 ML SYRINGE SUBCUT SCH (09:00)
[2019-05-01] MEDS: FUROSEMIDE 40 MG/4 ML VIAL IV SCH ×2 (09:25→15:56)
[2019-05-01] MEDS: NICOTINE 14 MG/24 HR PATCH TRANSDERM SCH (09:26)
[2019-05-01] MEDS: DULoxetine 30 MG CAPSULE PO SCH (09:27)
[2019-05-01] MEDS: PARoxetine 20 MG TABLET PO SCH (09:27)
[2019-05-01] MEDS: POTASSIUM CHLORIDE 20 MEQ TABLET PO PRN ×4 (09:28→15:55)
[2019-05-01] MEDS: DILTIAZEM CD 120 MG CAPSULE PO SCH (09:28)
[2019-05-01] MEDS: ASPIRIN EC 81 MG TABLET PO SCH (09:28)
[2019-05-01] MEDS: CLOPIDOGREL 75 MG TABLET PO SCH (09:28)
[2019-05-01] MEDS: MULTIVITAMIN (CENTRUM) TABLET PO SCH (09:28)
[2019-05-01] MEDS: TOPIRAMATE 100 MG TABLET PO SCH (09:28)
[2019-05-01] MEDS: METOPROLOL TARTRATE 25 MG TABLET PO SCH ×2 (09:28→20:58)
[2019-05-01] MEDS: GABAPENTIN 300 MG CAPSULE PO SCH ×3 (09:28→20:58)
[2019-05-01] MEDS: PANTOPRAZOLE 40 MG TABLET PO SCH (09:29)
[2019-05-01] MEDS: FLUTICASONE 50 MCG NASAL SPRAY 16 GM BOTTLE BOTH NARES SCH (09:50)
[2019-05-01] MEDS: ESCITALOPRAM 10 MG TABLET PO SCH (11:19)
[2019-05-01] MEDS ORDERED: diphenhydrAMINE CAP 25 MG CAPSULE PO PRN (16:24)
[2019-05-01] MEDS: AMITRIPTYLINE 100 MG TABLET PO SCH (20:57)
[2019-05-01] MEDS: ZALEPLON 5 MG CAPSULE PO SCH (20:58)
[2019-05-01] MEDS: MONTELUKAST 10 MG TABLET PO SCH (20:58)
[2019-05-01] MEDS: ATORVASTATIN 40 MG TABLET PO SCH (20:58)
[2019-05-01] MEDS: ENOXAPARIN 40 MG/0.4 ML SYRINGE SUBCUT SCH (21:00)
[2019-05-02] MEDS: NITROGLYCERIN 2% OINT 1 INCH/GM PACK TOP SCH ×2 (00:50→06:39)
[2019-05-02] MEDS: ALBUTEROL/IPRATROPIUM 3 ML NEB RESP TX SCH ×4 (01:13→19:03)
[2019-05-02] MEDS: PIPERACILLIN/TAZOBACTAM 3,375 MG in SODIUM CHLORIDE 0.9% 100 ML IV SCH ×3 (04:01→21:30)
[2019-05-02 05:15] LABS: Basophils % 0.2 % (0.0-0.8); Eosinophils # 0.2 10*3/uL (0.0-0.87); Eosinophils % 1.6 % (0.00-10.9); Hematocrit 32.4 VOL% (35.7-47.0); Hemoglobin 9.7 GM/DL (12.0-16.0); Immature Granulocytes % 0.4 %; Immature Granulocytes Absolute 0.05 #; Lymphocytes # 3.4 10*3/uL (1.4-4.0); Lymphocytes % 26.8 % (21.3-54.2); Mean Corpuscular HGB Conc 29.9 GM/DL (32-36); Mean Corpuscular Volume 86.2 FL (87-102); Mean Platelet Volume 10.4 FL (9.6-12.0); Monocytes % 14.2 % (1.7-12.7); NRBC # 0.02 10*3/uL; Neutrophils % 56.8 % (38.7-73.9); Platelet Count 387 T/CUMM (130-400); Red Blood Count 3.76 MC/CUMM (3.8-5.5); Red Cell Distribution Width 17.2 % (9.3-17.3); White Blood Count 12.6 T/CUMM (4-12)
[2019-05-02 05:40] LABS: Calcium 8.7 MG/DL (8.5-10.1); Osmolality,Calculated 286.1 MOS/KG (273-304)
[2019-05-02] MEDS: ASPIRIN EC 81 MG TABLET PO SCH (09:24)
[2019-05-02] MEDS: MULTIVITAMIN (CENTRUM) TABLET PO SCH (09:24)
[2019-05-02] MEDS: CLOPIDOGREL 75 MG TABLET PO SCH (09:24)
[2019-05-02] MEDS: METOPROLOL TARTRATE 25 MG TABLET PO SCH ×2 (09:24→21:29)
[2019-05-02] MEDS: DULoxetine 30 MG CAPSULE PO SCH (09:24)
[2019-05-02] MEDS: PARoxetine 20 MG TABLET PO SCH (09:24)
[2019-05-02] MEDS: NICOTINE 14 MG/24 HR PATCH TRANSDERM SCH (09:25)
[2019-05-02] MEDS: TOPIRAMATE 100 MG TABLET PO SCH (09:25)
[2019-05-02] MEDS: GABAPENTIN 300 MG CAPSULE PO SCH ×3 (09:25→21:29)
[2019-05-02] MEDS: DILTIAZEM CD 120 MG CAPSULE PO SCH (09:25)
[2019-05-02] MEDS: PANTOPRAZOLE 40 MG TABLET PO SCH (09:25)
[2019-05-02] MEDS: ESCITALOPRAM 10 MG TABLET PO SCH (09:25)
[2019-05-02] MEDS: FUROSEMIDE 40 MG/4 ML VIAL IV SCH (09:26)
[2019-05-02] MEDS: FLUTICASONE 50 MCG NASAL SPRAY 16 GM BOTTLE BOTH NARES SCH (09:49)
[2019-05-02] MEDS ORDERED: NITROGLYCERIN 2% OINT 1 INCH/GM PACK TOP PRN ×2 (11:52→12:30)
[2019-05-02] MEDS: ENOXAPARIN 40 MG/0.4 ML SYRINGE SUBCUT SCH (21:29)
[2019-05-02] MEDS: ATORVASTATIN 40 MG TABLET PO SCH (21:29)
[2019-05-02] MEDS: MONTELUKAST 10 MG TABLET PO SCH (21:29)
[2019-05-02] MEDS: ZALEPLON 5 MG CAPSULE PO SCH (21:29)
[2019-05-02] MEDS: AMITRIPTYLINE 100 MG TABLET PO SCH (21:29)
[2019-05-03] MEDS: ALBUTEROL/IPRATROPIUM 3 ML NEB RESP TX SCH ×2 (00:28→07:30)
[2019-05-03] MEDS: PIPERACILLIN/TAZOBACTAM 3,375 MG in SODIUM CHLORIDE 0.9% 100 ML IV SCH (04:26)
[2019-05-03 04:53] LABS: Basophils % 0.3 % (0.0-0.8); Eosinophils # 0.3 10*3/uL (0.0-0.87); Eosinophils % 2.5 % (0.00-10.9); Hematocrit 35.7 VOL% (35.7-47.0); Hemoglobin 10.6 GM/DL (12.0-16.0); Immature Granulocytes % 0.5 %; Immature Granulocytes Absolute 0.06 #; Lymphocytes # 3.8 10*3/uL (1.4-4.0); Lymphocytes % 31.4 % (21.3-54.2); Mean Corpuscular HGB Conc 29.7 GM/DL (32-36); Mean Corpuscular Volume 86.9 FL (87-102); Mean Platelet Volume 9.6 FL (9.6-12.0); Neutrophils % 50.3 % (38.7-73.9); Platelet Count 420 T/CUMM (130-400); Red Blood Count 4.11 MC/CUMM (3.8-5.5); Red Cell Distribution Width 17.1 % (9.3-17.3)
[2019-05-03 06:06] LABS: Eosinophils 2 % (0-10); Hypochromasia 1+; Lymphocytes 34 % (20-55); Platelet Estimate Adequate; Segmented Neutrophils 57 % (50-85); Total Cells Counted 100
[2019-05-03] MEDS: NICOTINE 14 MG/24 HR PATCH TRANSDERM SCH (08:33)
[2019-05-03] MEDS: ASPIRIN EC 81 MG TABLET PO SCH (08:36)
[2019-05-03] MEDS: GABAPENTIN 300 MG CAPSULE PO SCH (08:37)
[2019-05-03] MEDS: PARoxetine 20 MG TABLET PO SCH (08:37)
[2019-05-03] MEDS: ESCITALOPRAM 10 MG TABLET PO SCH (08:37)
[2019-05-03] MEDS: CLOPIDOGREL 75 MG TABLET PO SCH (08:37)
[2019-05-03] MEDS: PANTOPRAZOLE 40 MG TABLET PO SCH (08:39)
[2019-05-03] MEDS: DILTIAZEM CD 120 MG CAPSULE PO SCH (08:39)
[2019-05-03] MEDS: TOPIRAMATE 100 MG TABLET PO SCH (08:39)
[2019-05-03] MEDS: METOPROLOL TARTRATE 25 MG TABLET PO SCH (08:39)
[2019-05-03] MEDS: MULTIVITAMIN (CENTRUM) TABLET PO SCH (08:39)
[2019-05-03] MEDS: DULoxetine 30 MG CAPSULE PO SCH (08:40)
[2019-05-03] MEDS: FLUTICASONE 50 MCG NASAL SPRAY 16 GM BOTTLE BOTH NARES SCH (08:40)
[2019-05-03 08:42] VITALS: BP 113/47
[2019-05-03] MEDS ORDERED: FUROSEMIDE 40 MG TABLET PO SCH (09:00)
[2019-05-03] MEDS ORDERED: ISOSORBIDE MONONITRATE 30 MG TABLET PO SCH (15:11)
[2019-05-03] MEDS ORDERED: ISOSORBIDE MONONITRATE 60 MG TABLET PO SCH (15:11)
== END 2019-05-03 11:30 | disposition home or self-care (01) | DRG 246 ==
LOC: N.CC 19:11 → INTOOBSV 19:11 → N.TELES 05-01 13:10
PROVIDERS: ADMIT Internal Medicine Cardiovascular Disease; ATTEND Internal Medicine Cardiovascular Disease

== ENCOUNTER 2019-05-24 13:28 | Inpatient (IN) ==
[2019-05-24 14:10] LABS: Basophils % 0.4 % (0.0-0.8); Eosinophils # 0.1 10*3/uL (0.0-0.87); Eosinophils % 1.2 % (0.00-10.9); Hematocrit 24.7 VOL% (35.7-47.0); Hemoglobin 7.4 GM/DL (12.0-16.0); Immature Granulocytes % 0.3 %; Immature Granulocytes Absolute 0.02 #; Lymphocytes # 2.3 10*3/uL (1.4-4.0); Lymphocytes % 30.9 % (21.3-54.2); Mean Platelet Volume 9.8 FL (9.6-12.0); Monocytes % 11.9 % (1.7-12.7); NRBC # 0.09 10*3/uL; Neutrophils % 55.3 % (38.7-73.9); Platelet Count 337 T/CUMM (130-400); Red Blood Count 2.94 MC/CUMM (3.8-5.5); Red Cell Distribution Width 18.1 % (9.3-17.3); White Blood Count 7.5 T/CUMM (4-12)
[2019-05-24 14:24] LABS: Alanine Aminotransferase 139 U/L (13-56); Alkaline Phosphatase 155 U/L (45-117); Aspartate Amino Transferase 75 U/L (0-37); Blood Urea Nitrogen 21 MG/DL (7-18); Calcium 8.4 MG/DL (8.5-10.1); Estimated Glom Filtration Rate 33 ML/MIN; Glucose 150 MG/DL (74-106); Osmolality,Calculated 275.1 MOS/KG (273-304); Total Protein 7.2 G/DL (6.4-8.3); Troponin I 0.019 NG/ML (0.00-0.045)
[2019-05-24 14:30] LABS: PT Patient Result 11.3 SECS (9.6-12.2); Partial Thromboplastin Time 25.2 SECS (20.8-36.0)
[2019-05-24 14:35] LABS: % Iron Saturation 5.3 % (18-50); Ferritin 33.9 ng/ml (8-252)
[2019-05-24 14:46] LABS: Folate > 24.0 NG/ML (5.4-24.0); Vitamin B12 784 PG/ML (211-911)
[2019-05-24] MEDS ORDERED: ACETAMINOPHEN 325 MG TABLET PO PRN (15:20)
[2019-05-24] MEDS ORDERED: LACTULOSE 20 GM/30 ML UDCUP PO PRN (15:20)
[2019-05-24] MEDS ORDERED: SODIUM CHLORIDE 0.9% 1,000 ML IV PRN (15:20)
[2019-05-24] MEDS ORDERED: ONDANSETRON 4 MG/2 ML VIAL IV PRN (15:20)
[2019-05-24] MEDS ORDERED: NITROGLYCERIN SL 0.4 MG TABLET SL PRN (15:30)
[2019-05-24] MEDS ORDERED: FUROSEMIDE 20 MG/2 ML VIAL IV ONE (15:31)
[2019-05-24] MEDS ORDERED: ALBUTEROL/IPRATROPIUM 3 ML NEB RESP TX PRN (15:53)
[2019-05-24 15:57] LABS: Risk Ratio 3.44; VLDL CHOLESTEROL 25.8 MG/DL
[2019-05-24] MEDS: ALBUTEROL/IPRATROPIUM 3 ML NEB RESP TX SCH ×2 (20:13→23:23)
[2019-05-24] MEDS: GABAPENTIN 300 MG CAPSULE PO SCH (21:27)
[2019-05-24] MEDS: POTASSIUM CHLORIDE 20 MEQ TABLET PO SCH (21:27)
[2019-05-24] MEDS: METHOCARBAMOL 750 MG TABLET PO SCH (21:27)
[2019-05-24] MEDS: ASCORBIC ACID 500 MG TABLET PO SCH (21:28)
[2019-05-24] MEDS: FERROUS SULFATE 325 MG TABLET PO SCH (21:28)
[2019-05-24] MEDS: MONTELUKAST 10 MG TABLET PO SCH (21:29)
[2019-05-24] MEDS: FUROSEMIDE 20 MG/2 ML VIAL IV SCH (21:29)
[2019-05-24] MEDS: ATORVASTATIN 40 MG TABLET PO SCH (21:29)
[2019-05-24] MEDS: PROMETHAZINE 25 MG TABLET PO PRN (22:47)
[2019-05-25] MEDS: ALBUTEROL/IPRATROPIUM 3 ML NEB RESP TX SCH ×6 (04:12→23:53)
[2019-05-25 05:00] LABS: Calcium 8.2 MG/DL (8.5-10.1); Osmolality,Calculated 268.7 MOS/KG (273-304)
[2019-05-25 06:01] LABS: Basophils % 0.1 % (0.0-0.8); Hematocrit 33.2 VOL% (35.7-47.0); Hemoglobin 10.2 GM/DL (12.0-16.0); Immature Granulocytes % 0.5 %; Immature Granulocytes Absolute 0.05 #; Lymphocytes # 1.9 10*3/uL (1.4-4.0); Lymphocytes % 19.2 % (21.3-54.2); Mean Corpuscular HGB Conc 30.7 GM/DL (32-36); Mean Corpuscular Volume 84.3 FL (87-102); Mean Platelet Volume 9.5 FL (9.6-12.0); NRBC # 0.21 10*3/uL; Neutrophils % 66.2 % (38.7-73.9); Platelet Count 311 T/CUMM (130-400); Red Blood Count 3.94 MC/CUMM (3.8-5.5); Red Cell Distribution Width 17.4 % (9.3-17.3)
[2019-05-25] MEDS: PROMETHAZINE 25 MG TABLET PO PRN (07:00)
[2019-05-25] MEDS ORDERED: SODIUM POLYSTYRENE SULFATE 15 GM/60 ML BOTTLE PO ONE (08:40)
[2019-05-25] MEDS ORDERED: TOPIRAMATE 100 MG TABLET PO SCH (09:00)
[2019-05-25] MEDS ORDERED: ASPIRIN EC 325 MG TABLET PO SCH (09:00)
[2019-05-25] MEDS: MULTIVITAMIN (CENTRUM) TABLET PO SCH (10:13)
[2019-05-25] MEDS: PARoxetine 20 MG TABLET PO SCH (10:14)
[2019-05-25] MEDS: METHOCARBAMOL 750 MG TABLET PO SCH ×3 (10:17→20:55)
[2019-05-25] MEDS: DULoxetine 30 MG CAPSULE PO SCH (10:17)
[2019-05-25] MEDS: CALCIUM (CARBONATE)/VITAMIN D 600 MG-400 UNIT TABLET PO SCH (10:17)
[2019-05-25] MEDS: FERROUS SULFATE 325 MG TABLET PO SCH ×2 (10:18→20:55)
[2019-05-25] MEDS: ASCORBIC ACID 500 MG TABLET PO SCH ×2 (10:18→20:55)
[2019-05-25] MEDS: AMITRIPTYLINE 100 MG TABLET PO SCH (10:19)
[2019-05-25] MEDS: PANTOPRAZOLE 40 MG TABLET PO SCH (10:19)
[2019-05-25] MEDS: POTASSIUM CHLORIDE 20 MEQ TABLET PO SCH (10:48)
[2019-05-25] MEDS: GABAPENTIN 300 MG CAPSULE PO SCH ×2 (10:49→20:55)
[2019-05-25] MEDS: FUROSEMIDE 20 MG/2 ML VIAL IV SCH (11:07)
[2019-05-25] MEDS ORDERED: MAGNESIUM SULF RIDER 4 GM in PREMIX 1 EACH IV PRN (11:36)
[2019-05-25] MEDS ORDERED: MAGNESIUM SULF RIDER 2 GM in PREMIX 1 EACH IV PRN (11:36)
[2019-05-25 13:26] LABS: Apearance,Urine Slightly Hazy (Clear); Bilirubin,Urine Negative (Negative); Blood, Urine Negative (Negative); Glucose,Urine (UA) Negative (Negative); Hyaline Casts,Urine 43 /LPF (0-3); Ketones,Urine Negative (Negative); Mucus,Urine Occasional /LPF (Occasional); Nitrite,Urine Negative (Negative); Protein,Urine Negative; RBC,Urine 9 /HPF (0-4); Squamous Epithelial Cell,Urine Occasional /HPF (0-10); Urine Color Yellow (Yellow); Urine Specific Gravity 1.016 (1.001-1.035); Urine Urobilinogen < 2.0 EU/DL (0.2-1.0); WBC,Urine 5 /HPF (0-6)
[2019-05-25] MEDS: DILTIAZEM CD 120 MG CAPSULE PO SCH (13:38)
[2019-05-25] MEDS: ISOSORBIDE MONONITRATE 60 MG TABLET PO SCH ×2 (13:38→20:55)
[2019-05-25] MEDS: METOPROLOL TARTRATE 25 MG TABLET PO SCH ×2 (13:38→20:55)
[2019-05-25] MEDS: CLOPIDOGREL 75 MG TABLET PO SCH (13:38)
[2019-05-25] MEDS: FUROSEMIDE 40 MG/4 ML VIAL IV SCH (16:16)
[2019-05-25 16:52] LABS: Troponin I 0.091 NG/ML (0.00-0.045)
[2019-05-25] MEDS: ATORVASTATIN 40 MG TABLET PO SCH (20:54)
[2019-05-25] MEDS: MONTELUKAST 10 MG TABLET PO SCH (20:55)
[2019-05-26 03:37] LABS: Basophils % 0.4 % (0.0-0.8); Eosinophils # 0.1 10*3/uL (0.0-0.87); Eosinophils % 0.5 % (0.00-10.9); Hematocrit 28.7 VOL% (35.7-47.0); Hemoglobin 8.9 GM/DL (12.0-16.0); Immature Granulocytes % 0.5 %; Immature Granulocytes Absolute 0.05 #; Lymphocytes # 2.5 10*3/uL (1.4-4.0); Lymphocytes % 22.9 % (21.3-54.2); Mean Corpuscular Volume 81.3 FL (87-102); Mean Platelet Volume 9.8 FL (9.6-12.0); Monocytes % 10.1 % (1.7-12.7); NRBC # 0.44 10*3/uL; Neutrophils % 65.6 % (38.7-73.9); Platelet Count 257 T/CUMM (130-400); Red Blood Count 3.53 MC/CUMM (3.8-5.5); Red Cell Distribution Width 17.9 % (9.3-17.3); White Blood Count 10.8 T/CUMM (4-12)
[2019-05-26 03:51] LABS: Osmolality,Calculated 281.4 MOS/KG (273-304)
[2019-05-26] MEDS: ALBUTEROL/IPRATROPIUM 3 ML NEB RESP TX SCH ×5 (03:55→19:01)
[2019-05-26 04:00] LABS: Troponin I 0.106 NG/ML (0.00-0.045)
[2019-05-26] MEDS: LEVOTHYROXINE 25 MCG TABLET PO SCH (06:07)
[2019-05-26] MEDS: DULoxetine 30 MG CAPSULE PO SCH (09:01)
[2019-05-26] MEDS: PARoxetine 20 MG TABLET PO SCH (09:02)
[2019-05-26] MEDS: CLOPIDOGREL 75 MG TABLET PO SCH (09:02)
[2019-05-26] MEDS: MULTIVITAMIN (CENTRUM) TABLET PO SCH (09:02)
[2019-05-26] MEDS: METHOCARBAMOL 750 MG TABLET PO SCH ×3 (09:02→21:12)
[2019-05-26] MEDS: DILTIAZEM CD 120 MG CAPSULE PO SCH (09:03)
[2019-05-26] MEDS: FERROUS SULFATE 325 MG TABLET PO SCH ×2 (09:04→21:12)
[2019-05-26] MEDS: METOPROLOL TARTRATE 25 MG TABLET PO SCH ×2 (09:04→21:12)
[2019-05-26] MEDS: ASCORBIC ACID 500 MG TABLET PO SCH ×2 (09:04→21:12)
[2019-05-26] MEDS: AMITRIPTYLINE 100 MG TABLET PO SCH (09:04)
[2019-05-26] MEDS: ISOSORBIDE MONONITRATE 60 MG TABLET PO SCH ×2 (09:05→21:11)
[2019-05-26] MEDS: CALCIUM (CARBONATE)/VITAMIN D 600 MG-400 UNIT TABLET PO SCH (09:05)
[2019-05-26] MEDS: PANTOPRAZOLE 40 MG TABLET PO SCH (09:05)
[2019-05-26] MEDS ORDERED: MAGNESIUM SULF RIDER 2 GM in PREMIX 1 EACH IV ONE (09:13)
[2019-05-26] MEDS ORDERED: POTASSIUM CHLORIDE 20 MEQ/15 ML UDCUP PO ONE (09:13)
[2019-05-26] MEDS: ASPIRIN EC 81 MG TABLET PO SCH (10:23)
[2019-05-26] MEDS: FUROSEMIDE 40 MG/4 ML VIAL IV SCH ×2 (10:24→16:09)
[2019-05-26] MEDS: NYSTATIN 500,000 UNIT/5 ML UDCUP SWISH/SWAL SCH ×3 (12:55→21:11)
[2019-05-26] MEDS: ATORVASTATIN 40 MG TABLET PO SCH (21:11)
[2019-05-26] MEDS: MONTELUKAST 10 MG TABLET PO SCH (21:11)
[2019-05-26] MEDS: hydrALAZINE 10 MG TABLET PO SCH (21:12)
[2019-05-26] MEDS: GABAPENTIN 300 MG CAPSULE PO SCH (21:12)
[2019-05-26] MEDS: PROMETHAZINE 25 MG TABLET PO PRN (21:18)
[2019-05-27] MEDS: ALBUTEROL/IPRATROPIUM 3 ML NEB RESP TX SCH ×6 (00:05→19:46)
[2019-05-27 06:20] LABS: Basophils % 0.3 % (0.0-0.8); Eosinophils # 0.1 10*3/uL (0.0-0.87); Eosinophils % 1.1 % (0.00-10.9); Hematocrit 30.3 VOL% (35.7-47.0); Hemoglobin 9.6 GM/DL (12.0-16.0); Immature Granulocytes % 0.5 %; Immature Granulocytes Absolute 0.05 #; Lymphocytes # 1.4 10*3/uL (1.4-4.0); Lymphocytes % 14.6 % (21.3-54.2); Mean Corpuscular HGB Conc 31.7 GM/DL (32-36); Mean Corpuscular Volume 81.9 FL (87-102); Monocytes % 10.9 % (1.7-12.7); NRBC # 0.17 10*3/uL; Neutrophils % 72.6 % (38.7-73.9); Platelet Count 288 T/CUMM (130-400); Red Cell Distribution Width 17.8 % (9.3-17.3); White Blood Count 9.7 T/CUMM (4-12)
[2019-05-27 06:44] LABS: Calcium 8.2 MG/DL (8.5-10.1); Osmolality,Calculated 276.7 MOS/KG (273-304)
[2019-05-27] MEDS ORDERED: POTASSIUM CHLORIDE 20 MEQ TABLET PO SCH (09:00)
[2019-05-27] MEDS: MULTIVITAMIN (CENTRUM) TABLET PO SCH (09:07)
[2019-05-27] MEDS: FERROUS SULFATE 325 MG TABLET PO SCH ×2 (09:07→21:03)
[2019-05-27] MEDS: PARoxetine 20 MG TABLET PO SCH (09:07)
[2019-05-27] MEDS: DULoxetine 30 MG CAPSULE PO SCH (09:07)
[2019-05-27] MEDS: CLOPIDOGREL 75 MG TABLET PO SCH (09:08)
[2019-05-27] MEDS: METHOCARBAMOL 750 MG TABLET PO SCH ×3 (09:08→21:03)
[2019-05-27] MEDS: ASPIRIN EC 81 MG TABLET PO SCH (09:08)
[2019-05-27] MEDS: METOPROLOL TARTRATE 25 MG TABLET PO SCH ×2 (09:08→21:03)
[2019-05-27] MEDS: ISOSORBIDE MONONITRATE 60 MG TABLET PO SCH ×2 (09:08→21:03)
[2019-05-27] MEDS: CALCIUM (CARBONATE)/VITAMIN D 600 MG-400 UNIT TABLET PO SCH (09:08)
[2019-05-27] MEDS: DILTIAZEM CD 120 MG CAPSULE PO SCH (09:08)
[2019-05-27] MEDS: hydrALAZINE 10 MG TABLET PO SCH ×3 (09:08→21:03)
[2019-05-27] MEDS: ASCORBIC ACID 500 MG TABLET PO SCH ×2 (09:08→21:03)
[2019-05-27] MEDS: PANTOPRAZOLE 40 MG TABLET PO SCH (09:08)
[2019-05-27] MEDS: AMITRIPTYLINE 100 MG TABLET PO SCH (09:08)
[2019-05-27] MEDS: LEVOTHYROXINE 25 MCG TABLET PO SCH (09:08)
[2019-05-27] MEDS: FUROSEMIDE 40 MG/4 ML VIAL IV SCH ×2 (09:09→16:50)
[2019-05-27] MEDS: NYSTATIN 500,000 UNIT/5 ML UDCUP SWISH/SWAL SCH ×4 (09:09→21:04)
[2019-05-27] MEDS ORDERED: POTASSIUM CHLORIDE 20 MEQ TABLET PO ONE (12:00)
[2019-05-27] MEDS: GABAPENTIN 300 MG CAPSULE PO SCH (21:03)
[2019-05-27] MEDS: MONTELUKAST 10 MG TABLET PO SCH (21:03)
[2019-05-27] MEDS: ZALEPLON 5 MG CAPSULE PO PRN (21:03)
[2019-05-27] MEDS: ATORVASTATIN 40 MG TABLET PO SCH (21:04)
[2019-05-28] MEDS: ALBUTEROL/IPRATROPIUM 3 ML NEB RESP TX SCH ×6 (00:33→21:05)
[2019-05-28 05:30] LABS: Basophils % 0.4 % (0.0-0.8); Eosinophils # 0.2 10*3/uL (0.0-0.87); Eosinophils % 2.2 % (0.00-10.9); Hematocrit 30.7 VOL% (35.7-47.0); Hemoglobin 9.5 GM/DL (12.0-16.0); Immature Granulocytes % 0.3 %; Immature Granulocytes Absolute 0.03 #; Lymphocytes # 2.9 10*3/uL (1.4-4.0); Lymphocytes % 29.2 % (21.3-54.2); Mean Corpuscular HGB Conc 30.9 GM/DL (32-36); Mean Corpuscular Volume 83.9 FL (87-102); Mean Platelet Volume 9.9 FL (9.6-12.0); Monocytes % 12.1 % (1.7-12.7); NRBC # 0.08 10*3/uL; Neutrophils % 55.8 % (38.7-73.9); Platelet Count 292 T/CUMM (130-400); Red Blood Count 3.66 MC/CUMM (3.8-5.5); Red Cell Distribution Width 19.5 % (9.3-17.3); White Blood Count 9.8 T/CUMM (4-12)
[2019-05-28 05:54] LABS: Calcium 8.2 MG/DL (8.5-10.1); Osmolality,Calculated 278.4 MOS/KG (273-304)
[2019-05-28] MEDS: LEVOTHYROXINE 25 MCG TABLET PO SCH (06:25)
[2019-05-28] MEDS ORDERED: POTASSIUM CHLORIDE 20 MEQ TABLET PO SCH (09:00)
[2019-05-28] MEDS ORDERED: MAGNESIUM SULF RIDER 2 GM in PREMIX 1 EACH IV ONE (09:20)
[2019-05-28] MEDS: PARoxetine 20 MG TABLET PO SCH (09:33)
[2019-05-28] MEDS: METHOCARBAMOL 750 MG TABLET PO SCH ×3 (09:33→20:08)
[2019-05-28] MEDS: CLOPIDOGREL 75 MG TABLET PO SCH (09:33)
[2019-05-28] MEDS: FERROUS SULFATE 325 MG TABLET PO SCH ×2 (09:33→20:09)
[2019-05-28] MEDS: DILTIAZEM CD 120 MG CAPSULE PO SCH (09:33)
[2019-05-28] MEDS: DULoxetine 30 MG CAPSULE PO SCH (09:34)
[2019-05-28] MEDS: PANTOPRAZOLE 40 MG TABLET PO SCH (09:34)
[2019-05-28] MEDS: NYSTATIN 500,000 UNIT/5 ML UDCUP SWISH/SWAL SCH ×4 (09:34→20:07)
[2019-05-28] MEDS: ISOSORBIDE MONONITRATE 60 MG TABLET PO SCH ×2 (09:34→20:09)
[2019-05-28] MEDS: hydrALAZINE 10 MG TABLET PO SCH ×3 (09:34→20:09)
[2019-05-28] MEDS: CALCIUM (CARBONATE)/VITAMIN D 600 MG-400 UNIT TABLET PO SCH (09:34)
[2019-05-28] MEDS: MULTIVITAMIN (CENTRUM) TABLET PO SCH (09:34)
[2019-05-28] MEDS: METOPROLOL TARTRATE 25 MG TABLET PO SCH ×2 (09:34→20:09)
[2019-05-28] MEDS: ASCORBIC ACID 500 MG TABLET PO SCH ×2 (09:34→20:09)
[2019-05-28] MEDS: ASPIRIN EC 81 MG TABLET PO SCH (09:34)
[2019-05-28] MEDS: FUROSEMIDE 40 MG/4 ML VIAL IV SCH ×2 (09:34→16:42)
[2019-05-28] MEDS: AMITRIPTYLINE 100 MG TABLET PO SCH (09:34)
[2019-05-28] MEDS: POTASSIUM CHLORIDE 20 MEQ TABLET PO SCH ×2 (14:34→20:08)
[2019-05-28] MEDS: ZALEPLON 5 MG CAPSULE PO PRN (20:09)
[2019-05-28] MEDS: MONTELUKAST 10 MG TABLET PO SCH (20:09)
[2019-05-28] MEDS: GABAPENTIN 300 MG CAPSULE PO SCH (20:09)
[2019-05-28] MEDS: ATORVASTATIN 40 MG TABLET PO SCH (20:10)
[2019-05-29] MEDS: ALBUTEROL/IPRATROPIUM 3 ML NEB RESP TX SCH ×6 (00:27→20:11)
[2019-05-29 05:44] LABS: Basophils % 0.4 % (0.0-0.8); Eosinophils # 0.2 10*3/uL (0.0-0.87); Eosinophils % 2.6 % (0.00-10.9); Hematocrit 32.8 VOL% (35.7-47.0); Hemoglobin 9.9 GM/DL (12.0-16.0); Immature Granulocytes % 0.4 %; Immature Granulocytes Absolute 0.03 #; Lymphocytes % 37.3 % (21.3-54.2); Mean Corpuscular HGB Conc 30.2 GM/DL (32-36); Mean Corpuscular Volume 84.5 FL (87-102); Mean Platelet Volume 10.3 FL (9.6-12.0); Monocytes % 13.9 % (1.7-12.7); NRBC # 0.03 10*3/uL; Neutrophils % 45.4 % (38.7-73.9); Platelet Count 301 T/CUMM (130-400); Red Blood Count 3.88 MC/CUMM (3.8-5.5); Red Cell Distribution Width 20.4 % (9.3-17.3); White Blood Count 8.1 T/CUMM (4-12)
[2019-05-29 06:00] LABS: Calcium 8.2 MG/DL (8.5-10.1); Osmolality,Calculated 276.5 MOS/KG (273-304)
[2019-05-29] MEDS: LEVOTHYROXINE 25 MCG TABLET PO SCH (06:24)
[2019-05-29] MEDS: ISOSORBIDE MONONITRATE 60 MG TABLET PO SCH ×2 (09:18→20:12)
[2019-05-29] MEDS: METHOCARBAMOL 750 MG TABLET PO SCH ×3 (09:18→20:12)
[2019-05-29] MEDS: MULTIVITAMIN (CENTRUM) TABLET PO SCH (09:18)
[2019-05-29] MEDS: AMITRIPTYLINE 100 MG TABLET PO SCH (09:18)
[2019-05-29] MEDS: ASPIRIN EC 81 MG TABLET PO SCH (09:18)
[2019-05-29] MEDS: FERROUS SULFATE 325 MG TABLET PO SCH ×2 (09:19→20:12)
[2019-05-29] MEDS: FUROSEMIDE 40 MG/4 ML VIAL IV SCH ×2 (09:19→16:20)
[2019-05-29] MEDS: METOPROLOL TARTRATE 25 MG TABLET PO SCH ×2 (09:19→20:13)
[2019-05-29] MEDS: PANTOPRAZOLE 40 MG TABLET PO SCH (09:19)
[2019-05-29] MEDS: DULoxetine 30 MG CAPSULE PO SCH (09:19)
[2019-05-29] MEDS: CLOPIDOGREL 75 MG TABLET PO SCH (09:19)
[2019-05-29] MEDS: CALCIUM (CARBONATE)/VITAMIN D 600 MG-400 UNIT TABLET PO SCH (09:19)
[2019-05-29] MEDS: POTASSIUM CHLORIDE 20 MEQ TABLET PO SCH ×3 (09:19→20:12)
[2019-05-29] MEDS: DILTIAZEM CD 120 MG CAPSULE PO SCH (09:19)
[2019-05-29] MEDS: ASCORBIC ACID 500 MG TABLET PO SCH ×2 (09:19→20:13)
[2019-05-29] MEDS: hydrALAZINE 10 MG TABLET PO SCH ×3 (09:19→20:13)
[2019-05-29] MEDS: PARoxetine 20 MG TABLET PO SCH (09:19)
[2019-05-29] MEDS: NYSTATIN 500,000 UNIT/5 ML UDCUP SWISH/SWAL SCH ×4 (09:20→20:11)
[2019-05-29] MEDS: GABAPENTIN 300 MG CAPSULE PO SCH (20:12)
[2019-05-29] MEDS: MONTELUKAST 10 MG TABLET PO SCH (20:12)
[2019-05-29] MEDS: ZALEPLON 5 MG CAPSULE PO PRN (20:19)
[2019-05-29] MEDS: ATORVASTATIN 40 MG TABLET PO SCH (20:31)
[2019-05-30] MEDS: ALBUTEROL/IPRATROPIUM 3 ML NEB RESP TX SCH ×6 (00:10→19:48)
[2019-05-30 05:40] LABS: Basophils % 0.5 % (0.0-0.8); Eosinophils # 0.3 10*3/uL (0.0-0.87); Eosinophils % 3.4 % (0.00-10.9); Hematocrit 36.2 VOL% (35.7-47.0); Hemoglobin 10.8 GM/DL (12.0-16.0); Immature Granulocytes % 0.7 %; Immature Granulocytes Absolute 0.05 #; Lymphocytes # 3.2 10*3/uL (1.4-4.0); Lymphocytes % 42.3 % (21.3-54.2); Mean Corpuscular HGB Conc 29.8 GM/DL (32-36); Mean Corpuscular Volume 85.8 FL (87-102); Mean Platelet Volume 9.6 FL (9.6-12.0); Monocytes % 12.6 % (1.7-12.7); Neutrophils % 40.5 % (38.7-73.9); Platelet Count 338 T/CUMM (130-400); Red Blood Count 4.22 MC/CUMM (3.8-5.5); White Blood Count 7.6 T/CUMM (4-12)
[2019-05-30 05:56] LABS: Calcium 8.7 MG/DL (8.5-10.1); Osmolality,Calculated 285.1 MOS/KG (273-304)
[2019-05-30] MEDS: LEVOTHYROXINE 25 MCG TABLET PO SCH (07:02)
[2019-05-30] MEDS: FUROSEMIDE 40 MG/4 ML VIAL IV SCH ×2 (10:53→16:43)
[2019-05-30] MEDS: hydrALAZINE 10 MG TABLET PO SCH ×3 (10:59→20:47)
[2019-05-30] MEDS: CALCIUM (CARBONATE)/VITAMIN D 600 MG-400 UNIT TABLET PO SCH (10:59)
[2019-05-30] MEDS: ASPIRIN EC 81 MG TABLET PO SCH (10:59)
[2019-05-30] MEDS: DILTIAZEM CD 120 MG CAPSULE PO SCH (10:59)
[2019-05-30] MEDS: AMITRIPTYLINE 100 MG TABLET PO SCH (11:01)
[2019-05-30] MEDS: DULoxetine 30 MG CAPSULE PO SCH (11:01)
[2019-05-30] MEDS: MULTIVITAMIN (CENTRUM) TABLET PO SCH (11:01)
[2019-05-30] MEDS: POTASSIUM CHLORIDE 20 MEQ TABLET PO SCH ×3 (11:02→20:47)
[2019-05-30] MEDS: METOPROLOL TARTRATE 25 MG TABLET PO SCH ×2 (11:02→20:47)
[2019-05-30] MEDS: ISOSORBIDE MONONITRATE 60 MG TABLET PO SCH ×2 (11:02→20:48)
[2019-05-30] MEDS: FERROUS SULFATE 325 MG TABLET PO SCH ×2 (11:02→20:48)
[2019-05-30] MEDS: CLOPIDOGREL 75 MG TABLET PO SCH (11:03)
[2019-05-30] MEDS: PARoxetine 20 MG TABLET PO SCH (11:03)
[2019-05-30] MEDS: NYSTATIN 500,000 UNIT/5 ML UDCUP SWISH/SWAL SCH ×4 (11:03→20:49)
[2019-05-30] MEDS: METHOCARBAMOL 750 MG TABLET PO SCH ×3 (11:04→20:47)
[2019-05-30] MEDS: ASCORBIC ACID 500 MG TABLET PO SCH ×2 (11:04→20:47)
[2019-05-30] MEDS: GABAPENTIN 300 MG CAPSULE PO SCH ×2 (11:04→20:48)
[2019-05-30] MEDS: PANTOPRAZOLE 40 MG TABLET PO SCH (11:04)
[2019-05-30] MEDS ORDERED: GABAPENTIN 300 MG CAPSULE PO PRN (16:23)
[2019-05-30] MEDS: MONTELUKAST 10 MG TABLET PO SCH (20:47)
[2019-05-30] MEDS: ATORVASTATIN 40 MG TABLET PO SCH (20:48)
[2019-05-31] MEDS: ALBUTEROL/IPRATROPIUM 3 ML NEB RESP TX SCH ×5 (00:27→15:28)
[2019-05-31] MEDS: LEVOTHYROXINE 25 MCG TABLET PO SCH (06:07)
[2019-05-31 06:21] LABS: Basophils # 0.1 10*3/uL (0.0-0.2); Basophils % 0.6 % (0.0-0.8); Eosinophils # 0.3 10*3/uL (0.0-0.87); Eosinophils % 2.8 % (0.00-10.9); Hematocrit 38.8 VOL% (35.7-47.0); Hemoglobin 11.9 GM/DL (12.0-16.0); Immature Granulocytes % 0.3 %; Immature Granulocytes Absolute 0.03 #; Lymphocytes # 3.7 10*3/uL (1.4-4.0); Lymphocytes % 41.9 % (21.3-54.2); Mean Corpuscular HGB Conc 30.7 GM/DL (32-36); Mean Corpuscular Volume 85.1 FL (87-102); Mean Platelet Volume 9.9 FL (9.6-12.0); Monocytes % 10.6 % (1.7-12.7); Neutrophils % 43.8 % (38.7-73.9); Platelet Count 359 T/CUMM (130-400); Red Blood Count 4.56 MC/CUMM (3.8-5.5); Red Cell Distribution Width 21.2 % (9.3-17.3); White Blood Count 8.8 T/CUMM (4-12)
[2019-05-31 06:41] LABS: Calcium 8.8 MG/DL (8.5-10.1)
[2019-05-31] MEDS: FUROSEMIDE 40 MG/4 ML VIAL IV SCH ×2 (09:50→16:03)
[2019-05-31] MEDS: NYSTATIN 500,000 UNIT/5 ML UDCUP SWISH/SWAL SCH ×2 (09:50→13:49)
[2019-05-31] MEDS: ASCORBIC ACID 500 MG TABLET PO SCH (09:51)
[2019-05-31] MEDS: DULoxetine 30 MG CAPSULE PO SCH (09:51)
[2019-05-31] MEDS: METHOCARBAMOL 750 MG TABLET PO SCH ×2 (09:51→16:28)
[2019-05-31] MEDS: MULTIVITAMIN (CENTRUM) TABLET PO SCH (09:51)
[2019-05-31] MEDS: DILTIAZEM CD 120 MG CAPSULE PO SCH (09:52)
[2019-05-31] MEDS: hydrALAZINE 10 MG TABLET PO SCH ×2 (09:52→16:27)
[2019-05-31] MEDS: ASPIRIN EC 81 MG TABLET PO SCH (09:52)
[2019-05-31] MEDS: POTASSIUM CHLORIDE 20 MEQ TABLET PO SCH ×2 (09:52→16:27)
[2019-05-31] MEDS: PANTOPRAZOLE 40 MG TABLET PO SCH (09:52)
[2019-05-31] MEDS: ISOSORBIDE MONONITRATE 60 MG TABLET PO SCH (09:52)
[2019-05-31] MEDS: GABAPENTIN 300 MG CAPSULE PO SCH (09:52)
[2019-05-31] MEDS: FERROUS SULFATE 325 MG TABLET PO SCH (09:53)
[2019-05-31] MEDS: CLOPIDOGREL 75 MG TABLET PO SCH (09:53)
[2019-05-31] MEDS: METOPROLOL TARTRATE 25 MG TABLET PO SCH (09:53)
[2019-05-31] MEDS: AMITRIPTYLINE 100 MG TABLET PO SCH (09:53)
[2019-05-31] MEDS: PARoxetine 20 MG TABLET PO SCH (09:53)
[2019-05-31] MEDS: CALCIUM (CARBONATE)/VITAMIN D 600 MG-400 UNIT TABLET PO SCH (09:54)
[2019-05-31 11:57] VITALS: BP 110/53
== END 2019-05-31 17:03 | disposition home or self-care (01) | DRG 811 ==
LOC: N.ED 13:28 → N.EDINP 15:20 → N.TELEN 15:58
PROVIDERS: ADMIT Internal Medicine; ATTEND Internal Medicine

== ENCOUNTER 2022-05-01 05:36 | Inpatient (IN) ==
[2022-05-01 06:07] LABS: Basophils # 0.1 10*3/uL (0.0-0.2); Basophils % 0.5 % (0.0-0.8); Eosinophils # 0.1 10*3/uL (0.0-0.87); Eosinophils % 1.1 % (0.00-10.9); Hematocrit 28.5 VOL% (35.7-47.0); Hemoglobin 9.2 GM/DL (12.0-16.0); Immature Granulocytes % 0.6 %; Immature Granulocytes Absolute 0.06 #; Lymphocytes # 1.4 10*3/uL (1.4-4.0); Lymphocytes % 12.8 % (21.3-54.2); Mean Corpuscular HGB Conc 32.3 GM/DL (32-36); Mean Corpuscular Volume 93.1 FL (87-102); Mean Platelet Volume 9.2 FL (9.6-12.0); Monocytes # 1.1 10*3/uL (0.11-0.8); Monocytes % 9.8 % (1.7-12.7); Neutrophils % 75.2 % (38.7-73.9); Platelet Count 483 T/CUMM (130-400); Red Blood Count 3.06 MC/CUMM (3.8-5.5); Red Cell Distribution Width 14.7 % (9.3-17.3); White Blood Count 10.7 T/CUMM (4-12)
[2022-05-01] MEDS ORDERED: ONDANSETRON 4 MG/2 ML VIAL IV ONE (06:08)
[2022-05-01] MEDS ORDERED: MORPHINE 2 MG/1 ML SYRINGE IV ONE (06:08)
[2022-05-01 06:20] LABS: INR 0.9; PT Patient Result 10.1 SECS (10.1-12.1); Partial Thromboplastin Time 24.2 SECS (23.7-32.9)
[2022-05-01 06:22] LABS: Bilirubin,Urine Negative (Negative); Blood, Urine Small mg/dL (Negative); Glucose,Urine (UA) Negative (Negative); Hyaline Casts,Urine 3 /LPF (0-3); Ketones,Urine Negative (Negative); Mucus,Urine Occasional /LPF (Occasional); Nitrite,Urine Negative (Negative); Protein,Urine Negative (Negative); RBC,Urine <1 /HPF (0-4); Urine Appearance CLEAR (Clear); Urine Color Straw (Yellow); Urine Specific Gravity 1.006 (1.001-1.035); Urine Urobilinogen < 2.0 eU/dL (<2.0)
[2022-05-01 06:25] LABS: Barbiturates Screen,Urine Negative (Negative); Benzodiazepines Screen,Urine Negative (Negative); Cannabinoid Screen,Urine Negative (Negative); Opiate Screen,Urine Positive (Negative); Phencyclidine Screen,Urine Negative (Negative)
[2022-05-01 06:26] LABS: Alanine Aminotransferase 24 U/L (13-56); Albumin 3.3 G/DL (3.4-5.0); Alkaline Phosphatase 146 U/L (45-117); Aspartate Amino Transferase 16 U/L (0-37); Bilirubin,Total < 0.39 MG/DL (0.20-1.00); Blood Urea Nitrogen 15 MG/DL (7-18); Calcium 9.2 MG/DL (8.5-10.1); Carbon Dioxide 28 MMOL/L (21-32); Chloride 102 MMOL/L (98-107); Glucose 105 MG/DL (74-106); Osmolality,Calculated 273.8 MOS/KG (273-304); Potassium 3.2 MMOL/L (3.5-5.1); Sodium 137 MMOL/L (136-145); Total Protein 7.6 G/DL (6.4-8.2)
[2022-05-01] MEDS ORDERED: guaiFENesin/DM ER 600-30 MG TABLET PO PRN (09:55)
[2022-05-01] MEDS ORDERED: ONDANSETRON 4 MG/2 ML VIAL IV PRN (09:55)
[2022-05-01] MEDS ORDERED: hydrALAZINE 20 MG/1 ML VIAL IV PRN (09:55)
[2022-05-01] MEDS ORDERED: ACETAMINOPHEN 325 MG TABLET PO PRN (09:55)
[2022-05-01] MEDS ORDERED: NICOTINE 21 MG/24 HR PATCH TRANSDERM PRN (11:06)
[2022-05-01] MEDS ORDERED: NITROGLYCERIN SL 0.4 MG TABLET SL PRN (11:06)
[2022-05-01] MEDS: ALBUTEROL/IPRATROPIUM 3 ML NEB RESP TX SCH ×2 (13:00→19:20)
[2022-05-01] MEDS: hydrALAZINE 10 MG TABLET PO SCH ×2 (15:22→20:47)
[2022-05-01] MEDS: GABAPENTIN 300 MG CAPSULE PO SCH ×3 (15:22→20:50)
[2022-05-01] MEDS: FERROUS SULFATE 325 MG TABLET PO SCH (17:23)
[2022-05-01] MEDS: MULTIVITAMIN (CENTRUM) TABLET PO SCH (20:46)
[2022-05-01] MEDS: DOCUSATE SODIUM 100 MG CAPSULE PO SCH (20:47)
[2022-05-01] MEDS: ISOSORBIDE MONONITRATE 60 MG TABLET PO SCH (20:47)
[2022-05-01] MEDS: TOPIRAMATE 100 MG TABLET PO SCH (20:47)
[2022-05-01] MEDS: POTASSIUM CHLORIDE 20 MEQ TABLET PO SCH (20:47)
[2022-05-02] MEDS: ALBUTEROL/IPRATROPIUM 3 ML NEB RESP TX SCH ×4 (00:10→19:11)
[2022-05-02] MEDS: MORPHINE 2 MG/1 ML SYRINGE IV PRN ×2 (03:07→07:34)
[2022-05-02] MEDS: LEVOTHYROXINE 50 MCG TABLET PO SCH (05:42)
[2022-05-02 06:09] LABS: Basophils % 0.2 % (0.0-0.8); Hematocrit 29.6 VOL% (35.7-47.0); Hemoglobin 9.6 GM/DL (12.0-16.0); Immature Granulocytes % 0.5 %; Immature Granulocytes Absolute 0.06 #; Lymphocytes % 8.4 % (21.3-54.2); Mean Corpuscular HGB Conc 32.4 GM/DL (32-36); Mean Corpuscular Volume 92.2 FL (87-102); Mean Platelet Volume 9.3 FL (9.6-12.0); Monocytes # 1.7 10*3/uL (0.11-0.8); Monocytes % 14.1 % (1.7-12.7); Neutrophils % 76.8 % (38.7-73.9); Platelet Count 444 T/CUMM (130-400); Red Blood Count 3.21 MC/CUMM (3.8-5.5); Red Cell Distribution Width 14.6 % (9.3-17.3); White Blood Count 12.1 T/CUMM (4-12)
[2022-05-02 06:35] LABS: Calcium 8.4 MG/DL (8.5-10.1); Osmolality,Calculated 273.8 MOS/KG (273-304); Potassium 2.9 MMOL/L (3.5-5.1); Risk Ratio 2.66; Thyroid Stimulating Hormone 0.577 uIU/ml (0.358-3.74); VLDL Cholesterol 20.8 MG/DL
[2022-05-02] MEDS: POTASSIUM CHLORIDE RIDER 10 MEQ/100 ML PREMIX IV PRN ×4 (07:39→22:54)
[2022-05-02] MEDS ORDERED: DEXAMETHASONE 4 MG/1 ML VIAL ONE (08:19)
[2022-05-02] MEDS ORDERED: LIDOCAINE 1% 5 ML VIAL ONE (08:19)
[2022-05-02] MEDS ORDERED: BUPIVACAINE MPF 0.25% 30 ML VIAL ONE (08:19)
[2022-05-02] MEDS ORDERED: PHENYLEPHRINE DRIP 20 MG/250 ML PREMIX IV ONE (08:20)
[2022-05-02] MEDS ORDERED: fentaNYL 100 MCG/2 ML VIAL ONE ×2 (08:22→10:11)
[2022-05-02] MEDS ORDERED: MIDAZOLAM 2 MG/2 ML VIAL ONE (08:22)
[2022-05-02] MEDS ORDERED: LACTATED RINGERS 1,000 ML IV SCH (09:00)
[2022-05-02] MEDS ORDERED: ETOMIDATE 40 MG/20 ML VIAL IV ONE (09:03)
[2022-05-02] MEDS ORDERED: ROCURONIUM 50 MG/5 ML VIAL IV ONE (09:03)
[2022-05-02] MEDS ORDERED: SEVOFLURANE 1 UNIT/15 MINUTE INH ONE (09:03)
[2022-05-02] MEDS ORDERED: ONDANSETRON 4 MG/2 ML VIAL ONE (09:03)
[2022-05-02] MEDS ORDERED: LIDOCAINE 2% 5 ML VIAL ONE (09:03)
[2022-05-02] MEDS: PANTOPRAZOLE 40 MG TABLET PO SCH (09:35)
[2022-05-02] MEDS ORDERED: MORPHINE 2 MG/1 ML SYRINGE IV PRN ×2 (10:38)
[2022-05-02] MEDS ORDERED: MAGNESIUM HYDROXIDE SUSP 30 ML UDCUP PO PRN (10:38)
[2022-05-02] MEDS ORDERED: ONDANSETRON 4 MG/2 ML VIAL IV PRN (11:24)
[2022-05-02] MEDS: HYDROmorphone 1 MG/1 ML SYRINGE IV PRN ×2 (11:25→11:35)
[2022-05-02] MEDS ORDERED: HYDROmorphone 1 MG/1 ML SYRINGE ONE (11:25)
[2022-05-02] MEDS: DOCUSATE SODIUM 100 MG CAPSULE PO SCH ×2 (11:29→20:36)
[2022-05-02] MEDS: CALCIUM (CARBONATE)/VITAMIN D 600 MG-400 UNIT TABLET PO SCH (11:29)
[2022-05-02] MEDS: FERROUS SULFATE 325 MG TABLET PO SCH ×2 (11:29→16:36)
[2022-05-02] MEDS: ISOSORBIDE MONONITRATE 60 MG TABLET PO SCH ×2 (11:56→20:36)
[2022-05-02] MEDS: DILTIAZEM CD 120 MG CAPSULE PO SCH (11:56)
[2022-05-02] MEDS: POTASSIUM CHLORIDE 20 MEQ TABLET PO SCH ×2 (11:56→20:35)
[2022-05-02] MEDS: GABAPENTIN 300 MG CAPSULE PO SCH ×3 (11:57→20:36)
[2022-05-02] MEDS: AMITRIPTYLINE 50 MG TABLET PO SCH (11:57)
[2022-05-02] MEDS: hydrALAZINE 10 MG TABLET PO SCH ×3 (12:12→22:06)
[2022-05-02] MEDS: NICOTINE 21 MG/24 HR PATCH TRANSDERM SCH (14:43)
[2022-05-02 15:14] LABS: Potassium 3.9 MMOL/L (3.5-5.1)
[2022-05-02] MEDS: TOPIRAMATE 100 MG TABLET PO SCH (20:35)
[2022-05-02] MEDS: PARoxetine 20 MG TABLET PO SCH (20:36)
[2022-05-02] MEDS: DULoxetine 30 MG CAPSULE PO SCH (20:36)
[2022-05-02] MEDS: MULTIVITAMIN (CENTRUM) TABLET PO SCH (22:07)
[2022-05-03] MEDS: ALBUTEROL/IPRATROPIUM 3 ML NEB RESP TX SCH ×4 (01:38→19:12)
[2022-05-03] MEDS: LACTATED RINGERS 1,000 ML IV SCH ×2 (01:48→10:06)
[2022-05-03 05:22] LABS: Basophils % 0.2 % (0.0-0.8); Eosinophils % 0.1 % (0.00-10.9); Hemoglobin 8.4 GM/DL (12.0-16.0); Immature Granulocytes % 0.5 %; Immature Granulocytes Absolute 0.06 #; Lymphocytes # 1.6 10*3/uL (1.4-4.0); Lymphocytes % 13.5 % (21.3-54.2); Mean Corpuscular HGB Conc 31.1 GM/DL (32-36); Mean Corpuscular Volume 95.7 FL (87-102); Mean Platelet Volume 9.8 FL (9.6-12.0); Monocytes # 2.1 10*3/uL (0.11-0.8); Monocytes % 17.2 % (1.7-12.7); Neutrophils % 68.5 % (38.7-73.9); Platelet Count 419 T/CUMM (130-400); Red Blood Count 2.82 MC/CUMM (3.8-5.5); Red Cell Distribution Width 14.6 % (9.3-17.3); White Blood Count 12.1 T/CUMM (4-12)
[2022-05-03 05:45] LABS: Calcium 8.4 MG/DL (8.5-10.1); Potassium 4.4 MMOL/L (3.5-5.1)
[2022-05-03] MEDS: LEVOTHYROXINE 50 MCG TABLET PO SCH (06:29)
[2022-05-03 06:32] LABS: Band Neutrophils 2 % (0-10); Lymphocytes 13 % (20-55); Total Cells Counted 100
[2022-05-03 06:33] LABS: Microcytosis Slight; Ovalocytes Slight; Platelet Estimate Increased
[2022-05-03] MEDS: PANTOPRAZOLE 40 MG TABLET PO SCH (10:00)
[2022-05-03] MEDS: DOCUSATE SODIUM 100 MG CAPSULE PO SCH ×2 (10:00→20:26)
[2022-05-03] MEDS: DILTIAZEM CD 120 MG CAPSULE PO SCH (10:00)
[2022-05-03] MEDS: GABAPENTIN 300 MG CAPSULE PO SCH ×3 (10:00→20:28)
[2022-05-03] MEDS: CLOPIDOGREL 75 MG TABLET PO SCH (10:00)
[2022-05-03] MEDS: ASPIRIN EC 81 MG TABLET PO SCH (10:01)
[2022-05-03] MEDS: AMITRIPTYLINE 50 MG TABLET PO SCH (10:01)
[2022-05-03] MEDS: CALCIUM (CARBONATE)/VITAMIN D 600 MG-400 UNIT TABLET PO SCH (10:01)
[2022-05-03] MEDS: hydrALAZINE 10 MG TABLET PO SCH ×2 (10:01→17:03)
[2022-05-03] MEDS: FERROUS SULFATE 325 MG TABLET PO SCH ×2 (10:01→17:02)
[2022-05-03] MEDS: POTASSIUM CHLORIDE 20 MEQ TABLET PO SCH ×2 (10:01→20:27)
[2022-05-03] MEDS: ISOSORBIDE MONONITRATE 60 MG TABLET PO SCH ×2 (10:01→20:27)
[2022-05-03] MEDS: NICOTINE 21 MG/24 HR PATCH TRANSDERM SCH (10:02)
[2022-05-03] MEDS: TOPIRAMATE 100 MG TABLET PO SCH (20:26)
[2022-05-03] MEDS: PARoxetine 20 MG TABLET PO SCH (20:27)
[2022-05-03] MEDS: MULTIVITAMIN (CENTRUM) TABLET PO SCH (20:27)
[2022-05-03] MEDS: DULoxetine 30 MG CAPSULE PO SCH (20:27)
[2022-05-04] MEDS: ALBUTEROL/IPRATROPIUM 3 ML NEB RESP TX SCH ×4 (01:00→19:05)
[2022-05-04] MEDS: hydrALAZINE 10 MG TABLET PO SCH ×4 (02:29→20:09)
[2022-05-04 05:06] LABS: Basophils % 0.3 % (0.0-0.8); Eosinophils % 0.3 % (0.00-10.9); Hematocrit 24.2 VOL% (35.7-47.0); Hemoglobin 7.5 GM/DL (12.0-16.0); Immature Granulocytes % 0.4 %; Immature Granulocytes Absolute 0.05 #; Lymphocytes # 1.7 10*3/uL (1.4-4.0); Lymphocytes % 14.4 % (21.3-54.2); Mean Corpuscular Volume 95.7 FL (87-102); Mean Platelet Volume 9.6 FL (9.6-12.0); Monocytes # 1.5 10*3/uL (0.11-0.8); Neutrophils % 71.6 % (38.7-73.9); Platelet Count 392 T/CUMM (130-400); Red Blood Count 2.53 MC/CUMM (3.8-5.5); White Blood Count 11.6 T/CUMM (4-12)
[2022-05-04 05:31] LABS: % Iron Saturation 4.5 % (18-50)
[2022-05-04 05:35] LABS: Calcium 8.5 MG/DL (8.5-10.1); Osmolality,Calculated 272.8 MOS/KG (273-304); Potassium 4.4 MMOL/L (3.5-5.1)
[2022-05-04] MEDS: LEVOTHYROXINE 50 MCG TABLET PO SCH (06:06)
[2022-05-04] MEDS ORDERED: SODIUM CHLORIDE 0.9% 1,000 ML IV PRN (08:54)
[2022-05-04] MEDS: NICOTINE 21 MG/24 HR PATCH TRANSDERM SCH (09:02)
[2022-05-04] MEDS: ISOSORBIDE MONONITRATE 60 MG TABLET PO SCH ×2 (09:03→20:08)
[2022-05-04] MEDS: CALCIUM (CARBONATE)/VITAMIN D 600 MG-400 UNIT TABLET PO SCH (09:03)
[2022-05-04] MEDS: CLOPIDOGREL 75 MG TABLET PO SCH (09:04)
[2022-05-04] MEDS: DILTIAZEM CD 120 MG CAPSULE PO SCH (09:04)
[2022-05-04] MEDS: GABAPENTIN 300 MG CAPSULE PO SCH ×3 (09:04→20:08)
[2022-05-04] MEDS: POTASSIUM CHLORIDE 20 MEQ TABLET PO SCH ×2 (09:05→20:08)
[2022-05-04] MEDS: AMITRIPTYLINE 50 MG TABLET PO SCH (09:05)
[2022-05-04] MEDS: PANTOPRAZOLE 40 MG TABLET PO SCH (09:06)
[2022-05-04] MEDS: ASPIRIN EC 81 MG TABLET PO SCH (09:06)
[2022-05-04] MEDS: FERRIC GLUCONATE COMPLEX 125 MG in SODIUM CHLORIDE 0.9% 100 ML IV SCH (09:30)
[2022-05-04] MEDS: DOCUSATE SODIUM 100 MG CAPSULE PO SCH ×2 (10:45→20:08)
[2022-05-04] MEDS: FERROUS SULFATE 325 MG TABLET PO SCH ×2 (10:45→16:44)
[2022-05-04] MEDS: DULoxetine 30 MG CAPSULE PO SCH (20:07)
[2022-05-04] MEDS: MULTIVITAMIN (CENTRUM) TABLET PO SCH (20:07)
[2022-05-04] MEDS: PARoxetine 20 MG TABLET PO SCH (20:08)
[2022-05-04] MEDS: TOPIRAMATE 100 MG TABLET PO SCH (20:08)
[2022-05-04 20:40] LABS: Hematocrit 30.2 VOL% (35.7-47.0)
[2022-05-04 20:41] LABS: Hemoglobin 9.8 GM/DL (12.0-16.0)
[2022-05-05] MEDS: ALBUTEROL/IPRATROPIUM 3 ML NEB RESP TX SCH ×4 (00:01→19:00)
[2022-05-05 05:32] LABS: Basophils # 0.1 10*3/uL (0.0-0.2); Basophils % 0.5 % (0.0-0.8); Eosinophils # 0.2 10*3/uL (0.0-0.87); Eosinophils % 1.7 % (0.00-10.9); Hematocrit 32.6 VOL% (35.7-47.0); Hemoglobin 10.1 GM/DL (12.0-16.0); Immature Granulocytes % 0.5 %; Immature Granulocytes Absolute 0.05 #; Lymphocytes # 1.4 10*3/uL (1.4-4.0); Lymphocytes % 15.5 % (21.3-54.2); Mean Corpuscular Volume 94.5 FL (87-102); Mean Platelet Volume 9.5 FL (9.6-12.0); Monocytes % 11.1 % (1.7-12.7); Neutrophils % 70.7 % (38.7-73.9); Platelet Count 402 T/CUMM (130-400); Red Blood Count 3.45 MC/CUMM (3.8-5.5); Red Cell Distribution Width 15.9 % (9.3-17.3); White Blood Count 9.3 T/CUMM (4-12)
[2022-05-05 05:49] LABS: Calcium 9.1 MG/DL (8.5-10.1); Osmolality,Calculated 276.5 MOS/KG (273-304); Potassium 4.8 MMOL/L (3.5-5.1)
[2022-05-05] MEDS: LEVOTHYROXINE 50 MCG TABLET PO SCH (05:50)
[2022-05-05] MEDS: FERRIC GLUCONATE COMPLEX 125 MG in SODIUM CHLORIDE 0.9% 100 ML IV SCH (09:06)
[2022-05-05] MEDS: POTASSIUM CHLORIDE 20 MEQ TABLET PO SCH ×2 (09:07→21:52)
[2022-05-05] MEDS: PANTOPRAZOLE 40 MG TABLET PO SCH (09:07)
[2022-05-05] MEDS: DOCUSATE SODIUM 100 MG CAPSULE PO SCH ×2 (09:07→21:52)
[2022-05-05] MEDS: ISOSORBIDE MONONITRATE 60 MG TABLET PO SCH ×2 (09:07→21:52)
[2022-05-05] MEDS: CALCIUM (CARBONATE)/VITAMIN D 600 MG-400 UNIT TABLET PO SCH (09:07)
[2022-05-05] MEDS: AMITRIPTYLINE 50 MG TABLET PO SCH (09:08)
[2022-05-05] MEDS: DILTIAZEM CD 120 MG CAPSULE PO SCH (09:08)
[2022-05-05] MEDS: ASPIRIN EC 81 MG TABLET PO SCH (09:08)
[2022-05-05] MEDS: hydrALAZINE 10 MG TABLET PO SCH ×3 (09:08→21:52)
[2022-05-05] MEDS: CLOPIDOGREL 75 MG TABLET PO SCH (09:08)
[2022-05-05] MEDS: GABAPENTIN 300 MG CAPSULE PO SCH ×3 (09:08→21:52)
[2022-05-05] MEDS: FERROUS SULFATE 325 MG TABLET PO SCH ×2 (09:08→16:40)
[2022-05-05] MEDS: NICOTINE 21 MG/24 HR PATCH TRANSDERM SCH (09:11)
[2022-05-05 14:27] LABS: Bacteria,Urine Occasional /HPF (Few); Bilirubin,Urine Negative (Negative); Blood, Urine Small mg/dL (Negative); Glucose,Urine (UA) Negative (Negative); Ketones,Urine Negative (Negative); Nitrite,Urine Negative (Negative); Protein,Urine Negative (Negative); RBC,Urine 4 /HPF (0-4); Squamous Epithelial Cell,Urine Occasional /HPF (0-10); Urine Appearance CLEAR (Clear); Urine Color Yellow (Yellow); Urine Specific Gravity 1.008 (1.001-1.035); Urine Urobilinogen < 2.0 eU/dL (<2.0)
[2022-05-05] MEDS: DULoxetine 30 MG CAPSULE PO SCH (21:51)
[2022-05-05] MEDS: TOPIRAMATE 100 MG TABLET PO SCH (21:52)
[2022-05-05] MEDS: MULTIVITAMIN (CENTRUM) TABLET PO SCH (21:52)
[2022-05-05] MEDS: PARoxetine 20 MG TABLET PO SCH (21:52)
[2022-05-06 05:30] LABS: Basophils % 0.5 % (0.0-0.8); Eosinophils # 0.1 10*3/uL (0.0-0.87); Eosinophils % 1.5 % (0.00-10.9); Hematocrit 34.5 VOL% (35.7-47.0); Hemoglobin 10.7 GM/DL (12.0-16.0); Immature Granulocytes % 0.7 %; Immature Granulocytes Absolute 0.06 #; Lymphocytes # 1.2 10*3/uL (1.4-4.0); Lymphocytes % 14.6 % (21.3-54.2); Mean Corpuscular Volume 93.5 FL (87-102); Mean Platelet Volume 9.1 FL (9.6-12.0); Monocytes # 0.9 10*3/uL (0.11-0.8); Monocytes % 10.2 % (1.7-12.7); NRBC # 0.02 10*3/uL; Neutrophils % 72.5 % (38.7-73.9); Platelet Count 429 T/CUMM (130-400); Red Blood Count 3.69 MC/CUMM (3.8-5.5); Red Cell Distribution Width 15.9 % (9.3-17.3); White Blood Count 8.4 T/CUMM (4-12)
[2022-05-06] MEDS: LEVOTHYROXINE 50 MCG TABLET PO SCH (05:41)
[2022-05-06 05:47] LABS: Calcium 9.3 MG/DL (8.5-10.1); Osmolality,Calculated 276.5 MOS/KG (273-304); Potassium 4.2 MMOL/L (3.5-5.1)
[2022-05-06] MEDS: ALBUTEROL/IPRATROPIUM 3 ML NEB RESP TX SCH ×4 (06:44→19:49)
[2022-05-06] MEDS: CALCIUM (CARBONATE)/VITAMIN D 600 MG-400 UNIT TABLET PO SCH (09:36)
[2022-05-06] MEDS: ISOSORBIDE MONONITRATE 60 MG TABLET PO SCH ×2 (09:36→20:02)
[2022-05-06] MEDS: PANTOPRAZOLE 40 MG TABLET PO SCH (09:37)
[2022-05-06] MEDS: AMITRIPTYLINE 50 MG TABLET PO SCH (09:37)
[2022-05-06] MEDS: POTASSIUM CHLORIDE 20 MEQ TABLET PO SCH ×2 (09:37→20:02)
[2022-05-06] MEDS: ASPIRIN EC 81 MG TABLET PO SCH (09:37)
[2022-05-06] MEDS: DILTIAZEM CD 120 MG CAPSULE PO SCH (09:37)
[2022-05-06] MEDS: hydrALAZINE 10 MG TABLET PO SCH ×3 (09:37→20:02)
[2022-05-06] MEDS: DOCUSATE SODIUM 100 MG CAPSULE PO SCH ×2 (09:38→20:03)
[2022-05-06] MEDS: NICOTINE 21 MG/24 HR PATCH TRANSDERM SCH (09:38)
[2022-05-06] MEDS: FERROUS SULFATE 325 MG TABLET PO SCH ×2 (09:38→16:08)
[2022-05-06] MEDS: GABAPENTIN 300 MG CAPSULE PO SCH ×3 (09:38→20:02)
[2022-05-06] MEDS: TAMSULOSIN 0.4 MG CAPSULE PO SCH (09:38)
[2022-05-06] MEDS: FERRIC GLUCONATE COMPLEX 125 MG in SODIUM CHLORIDE 0.9% 100 ML IV SCH (09:42)
[2022-05-06] MEDS: MULTIVITAMIN (CENTRUM) TABLET PO SCH (20:02)
[2022-05-06] MEDS: DULoxetine 30 MG CAPSULE PO SCH (20:02)
[2022-05-06] MEDS: TOPIRAMATE 100 MG TABLET PO SCH (20:02)
[2022-05-06] MEDS: PARoxetine 20 MG TABLET PO SCH (20:02)
[2022-05-07] MEDS: ALBUTEROL/IPRATROPIUM 3 ML NEB RESP TX SCH ×2 (00:52→07:15)
[2022-05-07] MEDS: LEVOTHYROXINE 50 MCG TABLET PO SCH (05:45)
[2022-05-07] MEDS: ISOSORBIDE MONONITRATE 60 MG TABLET PO SCH (08:18)
[2022-05-07] MEDS: DOCUSATE SODIUM 100 MG CAPSULE PO SCH (08:18)
[2022-05-07] MEDS: GABAPENTIN 300 MG CAPSULE PO SCH (08:18)
[2022-05-07] MEDS: ASPIRIN EC 81 MG TABLET PO SCH (08:18)
[2022-05-07] MEDS: CALCIUM (CARBONATE)/VITAMIN D 600 MG-400 UNIT TABLET PO SCH (08:19)
[2022-05-07] MEDS: AMITRIPTYLINE 50 MG TABLET PO SCH (08:19)
[2022-05-07] MEDS: PANTOPRAZOLE 40 MG TABLET PO SCH (08:19)
[2022-05-07] MEDS: TAMSULOSIN 0.4 MG CAPSULE PO SCH (08:19)
[2022-05-07] MEDS: DILTIAZEM CD 120 MG CAPSULE PO SCH (08:20)
[2022-05-07] MEDS: FERROUS SULFATE 325 MG TABLET PO SCH (08:20)
[2022-05-07] MEDS: NICOTINE 21 MG/24 HR PATCH TRANSDERM SCH (08:20)
[2022-05-07] MEDS: POTASSIUM CHLORIDE 20 MEQ TABLET PO SCH (08:20)
[2022-05-07] MEDS: FERRIC GLUCONATE COMPLEX 125 MG in SODIUM CHLORIDE 0.9% 100 ML IV SCH (08:25)
[2022-05-07] MEDS: hydrALAZINE 10 MG TABLET PO SCH (08:31)
[2022-05-07 11:12] VITALS: BP 113/49
== END 2022-05-07 12:20 | disposition swing bed (61) | DRG 481 ==
LOC: EDUNIT# → N.ED 05:36 → SUATTDRO 09:58 → N.EDINP 10:15 → N.3E 10:34
PROVIDERS: ADMIT Internal Medicine; ATTEND Internal Medicine